=== PATIENT | female | born 2005 | race Native Hawaiian/Other Pacific Islander ===

== ENCOUNTER 2024-04-09 02:40 | Emergency (ER) | payer MEDICAID, OTHER, SELFPAY ==
[2024-04-09 03:18] VITALS: BP 111/70; PULSE 115; RESP 23; TEMP 36.9; O2SAT 99; BMI 25.7
[2024-04-09 03:24] VITALS: BP 111/70; PULSE 115; RESP 23; TEMP 36.9; O2SAT 99
--- NOTE | 2024-04-09 03:42 | ED_ITS ---
HPI - Nausea/Vomiting/Diarrhea General Chief complaint: Nausea/Vomiting/Diarrhea Stated complaint: n/v/d Time Seen by Provider: 04/09/24 03:24 Source: patient Mode of arrival: ambulatory Limitations: no limitations History of Present Illness ED Provider: HPI Narrative: Patient otherwise healthy had [place] food in the evening today and since 18:00 started vomiting more than 15 times high diarrhea more than 6 times no other family members no fever had some chills will lightheaded dizzy weak no upper respiratory symptoms Related Data Previous Rx's ?Medication ?Instructions ?Recorded loperamide 2 mg tablet (Imodium 2 mg PO Q6H PRN loose stool #7 tabs 04/09/24 A-D) ondansetron 4 mg disintegrating 4 mg PO Q6-8H PRN nausea and 04/09/24 tablet vomiting #7 tabs Allergies Allergy/AdvReac Type Severity Reaction Status Date / Time No Known Allergies Allergy Verified 04/09/24 03:23 Review of Systems 2 Review of Systems: Yes all other systems are reviewed and are negative [facility] Social History Social History Smoked in Last 30 Days: No Use of substances other than those prescribed or required for medical reasons: No Advance Directives: No Advance Directives Information Provided: Yes Do you have a plan to hurt others: No Plan Patient : No Physical Exam 2 Vital Signs: Vital Signs: Last Vital Signs Temp 99.5 F 04/09/24 06:15 Pulse 104 H 04/09/24 06:15 Resp 12 04/09/24 06:15 BP 99/50 L 04/09/24 06:15 Pulse Ox 96 04/09/24 06:15 O2 Del Method Room Air 04/09/24 06:15 BMI result Body Mass Index 25.7 Appearance: Alert. Oriented X3. No acute distress. Eyes: No pallor or icterus ENT: Pharynx normal. Oral Mucosa moist Neck: Normal inspection. Neck supple. CVS: Normal heart rate and rhythm. Pulses normal. Respiratory: No respiratory distress. Equal air entry bilateral, no wheezing/rales/rhonchi Abdomen: Soft and nontender. Bowel sounds are present, no mass palpable, no CVA tenderness Skin: Skin warm and dry. Normal skin color. Normal skin turgor. Extremities: No lower extremity edema. No calf tenderness Neuro: Oriented X 3. No motor deficit. Medications Administered Discontinued Medications Generic Name Dose Route Start Last Admin Trade Name Galloq PRN Reason Stop Dose Admin Sodium Chloride 1,000 mls @ 999 mls/hr 04/09/24 04:01 04/09/24 06:14 Ns IV 04/09/24 05:01 Infused .Q1H1M ONE Infusion Loperamide HCl 4 mg 04/09/24 04:01 04/09/24 04:21 Loperamide Hcl 2 Mg Capsule PO 04/09/24 04:02 4 mg ONCE ONE Administration Ondansetron HCl 4 mg 04/09/24 04:01 04/09/24 04:21 Ondansetron Hcl 4 Mg/2 Ml Vial IVPUSH 04/09/24 04:02 4 mg ONCE ONE Administration Medical Decision Making Medical Decision Making [facility] Narrative: Patient is feeling much better after IV fluids taking p.o. fluids no diarrhea in the ER discharge patient home likely norovirus Lab Data [facility] Lab Attestation statement: I reviewed the patient's lab results. 04/09/24 03:43 04/09/24 03:43 Labs: Lab Results 04/09/24 Range/Units 03:43 WBC 13.4 H (4.8-10.8) X10*3/uL RBC 4.68 (4.20-5.50) X10*6/uL Hgb 13.9 (12.0-16.0) g/dl Hct 40.7 (37.0-47.0) % MCV 87.0 (80.0-98.0) fL MCH 29.7 (27.0-33.0) pg MCHC 34.2 (31.0-35.0) g/dl RDW 13.5 (11.0-16.0) % Plt Count 272 (160-400) X10*3/uL MPV 8.9 L (9.4-12.3) fL Immature Gran % (Auto) 0.2 (0.0-0.4) % Neut % (Auto) 85.5 H (45-73) % Lymph % (Auto) 6.2 L (20-40) % [place] % (Auto) 7.5 (2-11) % Eos % (Auto) 0.4 (0-4) % Baso % (Auto) 0.2 (0-2) % Lymph # (Auto) 0.8 L (1.2-4.9) X10*3/uL [place] # (Auto) 1.0 (0.1-1.2) X10*3/uL Eos # (Auto) 0.1 (0.0-0.4) X10*3/uL Baso # (Auto) 0.0 (0.0-0.2) X10*3/uL Abs Immat Gran (auto) 0.03 (0.00-0.03) X10*3/uL Absolute Neuts (auto) 11.5 H (2.0-8.3) x10*3/uL Absolute Nucleated RBC 0.000 (0.0-0.012) X10*3/uL Nucleated RBC % (auto) 0.0 (0.0-0.2) /100WBC Sodium 143 (135-145) mmol/L Potassium 4.0 (3.3-5.1) mmol/L Chloride 112 H (96-108) mmol/L Carbon Dioxide 22 (22-29) mmol/L Anion Gap 13 (12-20) BUN 20 H (9-16) mg/dL Creatinine 0.71 (0.5-1.4) mg/dL Estim Creat Clear Calc 130.2 Estimated GFR > 60 Random Glucose 134 H (60-115) mg/dL Calcium 8.4 (8.4-10.2) mg/dL Total Bilirubin 0.9 (0.0-1.0) mg/dL AST 18 (5-31) U/L ALT 22 (0-31) U/L Alkaline Phosphatase 95 (39-117) U/L Total Protein 7.1 (6.5-8.0) g/dL Albumin 4.3 (3.5-5.0) g/dL Discharge Plan Discharge Clinical Impression: Gastroenteritis Patient Disposition: Home, Self-Care Instructions: Gastroenteritis (ED) Additional Instructions: Drink plenty of fluids Medicine for nausea and diarrhea as prescribed Follow the PCP if not better Prescriptions: New loperamide [Imodium A-D] 2 mg tablet 2 mg PO Q6H PRN (Reason: loose stool) Qty: 7 0RF ondansetron 4 mg tablet,disintegrating 4 mg PO Q6-8H PRN (Reason: nausea and vomiting) Qty: 7 0RF Print Language: Senegalese
[2024-04-09 03:47] LABS: MANUAL DIFF FLAG NO
[2024-04-09 03:48] LABS: Basophils Percent Auto 0.2 % (0-2); Eosinophils Absolute Auto 0.1 X10*3/uL (0.0-0.4); Eosinophils Percent Auto 0.4 % (0-4); Hematocrit 40.7 % (37.0-47.0); Hemoglobin 13.9 g/dl (12.0-16.0); Imm Gran Abs Auto 0.03 X10*3/uL (0.00-0.03); Imm Gran Pct Auto 0.2 % (0.0-0.4); Lymphocytes Absolute Auto 0.8 X10*3/uL (1.2-4.9); Lymphocytes Percent Auto 6.2 % (20-40); Mean Corpuscular HGB Conc 34.2 g/dl (31.0-35.0); Mean Corpuscular Hemoglobin 29.7 pg (27.0-33.0); Mean Platelet Volume 8.9 fL (9.4-12.3); Monocytes Percent Auto 7.5 % (2-11); Neutrophils Absolute Auto 11.5 x10*3/uL (2.0-8.3); Neutrophils Percent Auto 85.5 % (45-73); Platelet Count 272 X10*3/uL (160-400); Red Blood Count 4.68 X10*6/uL (4.20-5.50); Red Cell Distribution Width 13.5 % (11.0-16.0); White Blood Count 13.4 X10*3/uL (4.8-10.8)
[2024-04-09 04:08] LABS: Alanine Aminotransferase 22 U/L (0-31); Albumin Level 4.3 g/dL (3.5-5.0); Alkaline Phosphatase 95 U/L (39-117); Anion Gap 13 (12-20); Aspartate Amino Transferase 18 U/L (5-31); Bilirubin Total 0.9 mg/dL (0.0-1.0); Blood Urea Nitrogen 20 mg/dL (9-16); Calcium 8.4 mg/dL (8.4-10.2); Carbon Dioxide 22 mmol/L (22-29); Chloride 112 mmol/L (96-108); Creatinine Clr Calc Pharmacy 130.2; Estimated Glomerular Filt Rate > 60; Glucose Random 134 mg/dL (60-115); Sodium 143 mmol/L (135-145); Total Protein 7.1 g/dL (6.5-8.0)
[2024-04-09] MEDS: Loperamide HCl 2 MG CAPSULE 4 MG PO (04:21)
[2024-04-09] MEDS: ondansetron HCL 4 MG/2 ML VIAL IVPUSH (04:21)
[2024-04-09] MEDS: 0.9 % Sodium Chloride 1,000 ML 999 ML IV (04:21)
--- NOTE | 2024-04-09 06:12 | PC.NURSE ---
Patient tolerated PO intake no nausea or pain reported post po intake of fluids
[2024-04-09 06:15] VITALS: BP 99/50; PULSE 104; RESP 12; TEMP 37.5; O2SAT 96
[2024-04-09 06:18] VITALS: BP 99/50; PULSE 104; RESP 12; TEMP 37.5; O2SAT 96
== END 2024-04-09 06:23 | disposition home or self-care (01) ==
PROVIDERS: Emergency Provider Internal Medicine
DX: K52.9 Noninfective gastroenteritis and colitis, unspecified (principal); R11.2 Nausea with vomiting, unspecified
CPT/HCPCS: 36415; 80053; 85025; 96361; 96374; 99284; J2405

== ENCOUNTER 2024-06-19 00:26 | Emergency (ER) | payer MEDICAID, OTHER, SELFPAY ==
[2024-06-19 00:39] VITALS: BP 115/68; PULSE 92; RESP 18; TEMP 36.6; O2SAT 98; BMI 26.7
[2024-06-19 01:08] LABS: Appearance Urine Clear; Color Urine Yellow; Glucose Urine UA Negative (Negative); Leukocyte Esterase Urine Moderate (2+) (Negative); Nitrite Urine Negative (Negative); PH 5.5 (5.0-9.0); Specific Gravity - Urine >= 1.030 (1.005-1.025); UMIC TRIGGER UACC YES; Urine Blood Small (1+) (Negative); Urine Ketones 15 mg/dL (Negative); Urine Protein Trace mg/dL (Neg-Trace)
[2024-06-19 01:15] LABS: Hematocrit 38.9 % (37.0-47.0); Hemoglobin 13.7 g/dl (12.0-16.0); Mean Corpuscular HGB Conc 35.2 g/dl (31.0-35.0); Mean Corpuscular Hemoglobin 29.7 pg (27.0-33.0); Mean Corpuscular Volume 84.4 fL (80.0-98.0); Mean Platelet Volume 8.9 fL (9.4-12.3); Platelet Count 330 X10*3/uL (160-400); Red Blood Count 4.61 X10*6/uL (4.20-5.50); Red Cell Distribution Width 12.6 % (11.0-16.0); White Blood Count 10.3 X10*3/uL (4.8-10.8)
[2024-06-19 01:19] LABS: Bacteria Urine None Seen (None Seen); Hyaline Casts Urine 0-2 /LPF (0-2); Squamous Epithelial Cell Urine 0-2 /HPF (0-2); UACC Culture Trigger YES; WBC Urine 21-50 /HPF (0-5)
[2024-06-19 01:26] LABS: Alanine Aminotransferase 17 U/L (0-31); Albumin Level 4.6 g/dL (3.5-5.0); Alkaline Phosphatase 94 U/L (39-117); Anion Gap 13 (12-20); Aspartate Amino Transferase 20 U/L (5-31); Bilirubin Direct 0.1 mg/dL (0.0-0.5); Bilirubin Total 0.3 mg/dL (0.0-1.0); Blood Urea Nitrogen 13 mg/dL (9-16); Calcium 9.3 mg/dL (8.4-10.2); Carbon Dioxide 23 mmol/L (22-29); Chloride 110 mmol/L (96-108); Creatinine Clr Calc Pharmacy 147.4; Estimated Glomerular Filt Rate > 60; Glucose Random 101 mg/dL (60-115); Lipase 11 U/L (8-78); Magnesium 1.8 mg/dL (1.6-2.6); Potassium 3.7 mmol/L (3.3-5.1); Sodium 142 mmol/L (135-145); Total Protein 7.8 g/dL (6.5-8.0)
--- NOTE | 2024-06-19 02:57 | ED_ITS ---
HPI - Abdominal Pain General Chief Complaint: Abdominal Pain Stated Complaint: abd pain Time Seen by Provider: 06/19/24 02:03 Source: patient Mode of arrival: ambulatory Limitations: no limitations History of Present Illness ED Provider: HPI narrative: Patient complaining of 3 days of mid and lower abdominal pain with nausea no vomiting no diarrhea no fever no chills status post appendectomy no vaginal discharge complaining of frequency and dysuria for last 2 days no flank pain no fever or chills Related Data Previous Rx's ?Medication ?Instructions ?Recorded loperamide 2 mg tablet (Imodium 2 mg PO Q6H PRN loose stool #7 tabs 04/09/24 A-D) ondansetron 4 mg disintegrating 4 mg PO Q6-8H PRN nausea and 04/09/24 tablet vomiting #7 tabs cefuroxime axetil 250 mg tablet 250 mg PO BID 7 days #14 tabs 06/19/24 phenazopyridine 200 mg tablet 200 mg PO TID 2 days #6 tabs 06/19/24 (Pyridium) Allergies Allergy/AdvReac Type Severity Reaction Status Date / Time No Known Allergies Allergy Verified 06/19/24 00:45 Review of Systems Review of Systems Yes all other systems are reviewed and are [facility] Social History Social History Advance Directives: No Advance Directives Information Provided: Yes Physical Exam ED Vital Signs: Vital Signs - 24 hr 06/19/24 00:39 06/19/24 03:56 06/19/24 03:59 Temperature 97.8 F 98.3 F 98.3 F Pulse Rate 92 81 81 Respiratory Rate 18 16 16 Blood Pressure 115/68 118/53 L 118/53 L Pulse Oximetry 98 98 98 Oxygen Delivery Method Room Air Room Air Room Air BMI result Body Mass Index 26.7 Appearance: Alert. Oriented X3. No acute distress. Eyes: No pallor or icterus ENT: Pharynx normal. Oral Mucosa moist Neck: Normal inspection. Neck supple. CVS: Normal heart rate and rhythm. Pulses normal. Respiratory: No respiratory distress. Equal air entry bilateral, no wheezing/rales/rhonchi Abdomen: Soft and mild suprapubic discomfort no rebound tenderness or guarding Bowel sounds are present, no mass palpable, no CVA tenderness Skin: Skin warm and dry. Normal skin color. Normal skin turgor. Extremities: No lower extremity edema. No calf tenderness Neuro: Oriented X 3. No motor deficit. Medical Decision Making Medical Decision Making [facility] Narrative: Patient with lower abdominal pain status post appendectomy normal WBC count noticed to have UTI will prescribe cefuroxime Lab Data [facility] Lab Attestation statement: I reviewed the patient's lab results. 06/19/24 00:58 06/19/24 00:58 Labs: Lab Results 06/19/24 Range/Units 00:58 WBC 10.3 (4.8-10.8) X10*3/uL RBC 4.61 (4.20-5.50) X10*6/uL Hgb 13.7 (12.0-16.0) g/dl Hct 38.9 (37.0-47.0) % MCV 84.4 (80.0-98.0) fL MCH 29.7 (27.0-33.0) pg MCHC 35.2 H (31.0-35.0) g/dl RDW 12.6 (11.0-16.0) % Plt Count 330 (160-400) X10*3/uL MPV 8.9 L (9.4-12.3) fL Absolute Nucleated RBC 0.000 (0.0-0.012) X10*3/uL Nucleated RBC % (auto) 0.0 (0.0-0.2) /100WBC Sodium 142 (135-145) mmol/L Potassium 3.7 (3.3-5.1) mmol/L Chloride 110 H (96-108) mmol/L Carbon Dioxide 23 (22-29) mmol/L Anion Gap 13 (12-20) BUN 13 (9-16) mg/dL Creatinine 0.63 (0.5-1.4) mg/dL Estim Creat Clear Calc 147.4 Estimated GFR > 60 Random Glucose 101 (60-115) mg/dL Calcium 9.3 D (8.4-10.2) mg/dL Magnesium 1.8 (1.6-2.6) mg/dL Total Bilirubin 0.3 (0.0-1.0) mg/dL Direct Bilirubin 0.1 (0.0-0.5) mg/dL AST 20 (5-31) U/L ALT 17 (0-31) U/L Alkaline Phosphatase 94 (39-117) U/L Total Protein 7.8 (6.5-8.0) g/dL Albumin 4.6 (3.5-5.0) g/dL Lipase 11 (8-78) U/L Urine Color Yellow Urine Appearance Clear Urine pH 5.5 (5.0-9.0) Ur Specific [place] >= 1.030 H (1.005-1.025) Urine Protein Trace (Neg-Trace) mg/dL Urine Glucose (UA) Negative (Negative) mg/dL Urine Ketones 15 (Negative) mg/dL Urine Blood Small (1+) H (Negative) Urine Nitrite Negative (Negative) Ur Leukocyte Esterase Moderate (2+) H (Negative) Urine RBC 3-5 H (0-2) /HPF Urine WBC 21-50 H (0-5) /HPF Ur Squamous Epith Cells 0-2 (0-2) /HPF Urine Bacteria None Seen (None Seen) Hyaline Casts 0-2 (0-2) /LPF Medications Administered Discontinued Medications Generic Name Dose Route Start Last Admin Trade Name Freq PRN Reason Stop Dose Admin Cefuroxime Axetil 500 mg 06/19/24 02:57 06/19/24 03:47 Cefuroxime Axetil 500 Mg Tablet PO 06/19/24 02:58 500 mg ONCE ONE Administration Phenazopyridine HCl 200 mg 06/19/24 03:04 06/19/24 03:46 Phenazopyridine Hcl 200 Mg Tablet PO 06/19/24 03:05 200 mg ONCE ONE Administration Discharge Plan Discharge Clinical Impression: UTI (urinary tract infection) Patient Disposition: Home, Self-Care Instructions: Urinary Tract Infection in Women (ED) Additional Instructions: Drink plenty of fluids Take antibiotics as prescribed Follow with your PCP if not better Prescriptions: New cefuroxime axetil 250 mg tablet 250 mg PO BID 7 Days Qty: 14 0RF phenazopyridine [Pyridium] 200 mg tablet 200 mg PO TID 2 Days Qty: 6 0RF No Action loperamide [Imodium A-D] 2 mg tablet 2 mg PO Q6H PRN (Reason: loose stool) Qty: 7 0RF ondansetron 4 mg tablet,disintegrating 4 mg PO Q6-8H PRN (Reason: nausea and vomiting) Qty: 7 0RF Interventions: ED Discharge Assessment Last Done: 06/19/24 03:59 Discharge Date/Time: 06/19/24 04:02 Print Language: Barbadian
[2024-06-19] MEDS: Phenazopyridine HCL 200 MG TABLET PO (03:46)
[2024-06-19] MEDS: cefuroxime axetiL 500 MG TABLET PO (03:47)
[2024-06-19 03:56] VITALS: BP 118/53; PULSE 81; RESP 16; TEMP 36.8; O2SAT 98
[2024-06-19 03:59] VITALS: BP 118/53; PULSE 81; RESP 16; TEMP 36.8; O2SAT 98
== END 2024-06-19 04:02 | disposition home or self-care (01) ==
PROVIDERS: Emergency Provider Internal Medicine
DX: N39.0 Urinary tract infection, site not specified (principal); R10.30 Lower abdominal pain, unspecified
CPT/HCPCS: 36415; 80053; 81001; 82248; 83690; 83735; 85027; 87086; 99283; 99284

== ENCOUNTER 2024-08-04 16:17 | Outpatient (REF) | payer MEDICAID, OTHER, SELFPAY ==
--- OUTSIDE RECORDS SUMMARY | 2024-08-04 16:20 | XMS_ITS | Encounter Summary ---
Author Organization [employer] Address [address] [facility] [address] [place] [address] Care Team Providers Care Plumber Name Role Phone Unavailable Primary Care Provider Unavailabl e Encounter Details Date Type Department Care Team (Latest Contact Info) Description 07/30/2024 Travel Social History Tobacco Use Types Packs/Day Years Used Date Smoking Tobacco: Never Smokeless Tobacco: Never Alcohol Use Standard Drinks/Week Comments Never 0 (1 standard drink = 0.6 oz pur e alcohol) Comments Unknown Sex and Gender Information Value Date Recorded Sex Assigned at Female 07/30/2024 9:42 AM EDT Legal Sex Female 1:51 PM EST Gender Identity Female 07/30/2024 9:42 AM EDT Sexual Orientation Choose not to disclose 2024 9:42 AM EDT documented as of this encounter Plan of Treatment Not on file documented as of this encounter Visit Diagnoses Not on filedocumented in this encounter
--- OUTSIDE RECORDS SUMMARY | 2024-08-04 16:20 | XMS_ITS | Clinical Summary ---
Author Organization [employer] Address [address] [facility] [address] [place] [address] Care Team Providers Care Animal Nutrition Consultant Name Role Phone Samanta Adams DO Primary Care Provider Allergies No known active allergies Medications albuterol 108 (90 Base) MCG/ACT inhalerIndicati ons:Asthma, unspecified asthma severity, unspecified whether complicated, unspecified whether persistent Inhale 2 puffs every 6 (six) hours if needed for wheezing. 18 g 07/31/19 Active fluticasone furoate (Arnuity Ellipta) 100 MCG/ACT inhalerIndicati ons:Asthma, unspecified asthma severity, unspecified whether complicated, unspecified whether persistent Inhale 1 puff Once per day. Rinse mouth with water after use to reduce aftertaste and incidence of candidiasis. Do not swallow. 1 each 07/31/19 Active montelukast (Singulair) 10 MG tabletIndicatio ns:Asthma, unspecified asthma severity, unspecified whether complicated, unspecified whether persistent Take 1 tablet (10 mg) by mouth Once per day. 30 tablet 2 07/31/19 025 Active ibuprofen 600 MG tablet Take 1 tablet (600 mg) by mouth every 6 (six) hours if needed for mild pain. 60 tablet 1 08/05/19 026 Active acetaminophen (Tylenol 8 Hour) 650 MG ER tablet Take 1 tablet (650 mg) by mouth every 8 (eight) hours if needed for mild pain. Do not crush, chew, or split. 60 tablet 1 08/05/19 026 Active sulfamethoxazol e-trimethoprim (Bactrim DS) 800-160 MG tablet Take 1 tablet by mouth 2 times daily for 3 days. 6 tablet 07/31/19 25 025 Discontinued Active Problems Problem Noted Date Diagnosed Date Asthma 07/30/2024 Seasonal allergies 07/30/2024 IUD (intrauterine device) in place 07/30/2024 Encounters Date Type Department Care Team Description 08/04/2024 1:40 PM EDT Office Visit [facility] [address] [place] [address] [phone] Pelvic pain (Primary Dx); Pain of ovary 07/30/2024 11:20 AM EDT Office Visit [facility] [address] [place] [address] [phone] Name, MD Victorino Asthma, unspecified asthma severity, unspecified whether complicated, unspecified whether persistent (Primary Dx); Acute cough; Seasonal allergies; Pelvic pain; IUD (intrauterine device) in place 07/30/2024 Travel 05/24/2024 Telephone [facility] [address] [place] [address] [phone] Marshall Solorio MD from Last 3 Months Social History Tobacco Use Types Packs/Day Years Used Date Smoking Tobacco: Never Smokeless Tobacco: Never Tobacco Cessation:Counseling Given: Not Answered Alcohol Use Standard Drinks/Week Comments Never 0 (1 standard drink = 0.6 oz pur e alcohol) Comments Unknown Sex and Gender Information Value Date Recorded Sex Assigned at Female 07/30/2024 9:42 AM EDT Legal Sex Female 1:51 PM EST Gender Identity Female 07/30/2024 9:42 AM EDT Sexual Orientation Choose not to disclose 2024 9:42 AM EDT Last Filed Vital Signs Vital Sign Reading Time Taken Comments Blood Pressure 124/78 08/04/2024 1:13 PM EDT Pulse 90 08/04/2024 1:13 PM EDT Temperature 36.4 ??C (97.6 ??F) 08/04/2024 1:13 PM ED T Respiratory Rate 16 08/04/2024 1:13 PM EDT Oxygen Saturation 99% 08/04/2024 1:13 PM EDT Inhaled Oxygen Concentration - - Weight 69.9 kg (154 lb) 08/04/2024 1:13 PM EDT Height - - Body Mass Index - - Plan of Treatment Health Maintenance Due Date Last Done Comments Chlamydia and Gonorrhea Screening 2004 Depression Screening 2004 HIV Screening 2004 SDOH Screening 2004 Alcohol/Substance Use Screening 2016 Family Planning (PISQ) 02/19/2019 HPV Vaccines (1 - 3-dose series) 02/19/2019 Hepatitis C Screening 02/19/2022 DTaP/Tdap/Td Vaccines (1 - Tdap) 02/19/2023 Hepatitis B Vaccines (1 of 3 - 19+ 3-dose series) 02/19/2023 Pneumococcal Vaccine: Pediat rics (0 to 5 Years) and At-Risk Patients (6 to 49) Years) (1 of 2 - PCV) 02/19/2023 COVID-19 Vaccine ( - 2023-2 5 season) 2023 Influenza Vaccine (#1) 2023 Tobacco Screening 07/30/2025 07/30/2024 Zoster Vaccines (1 of 2) 02/19/2054 RSV Patients and Pa tients Aged 60 years or older (1 - 1-dose 75+ series) 02/19/2079 HIB Vaccines Aged Out No longer eligi ble based on patient's age to complete this topic Hepatitis A Vaccines Aged Out No long er eligible based on patient's age to complete this topic IPV Vaccines Aged Out No longer eligi ble based on patient's age to complete this topic Meningococcal Vaccine Aged Out No karina marisa eligible based on patient's age to complete this topic RSV under 20 months Aged Out No longe r eligible based on patient's age to complete this topic Rotavirus Vaccines Aged Out No longer eligible based on patient's age to complete this topic Procedures Procedure Name Priority Date/Time Associated Diagnosis Comments POCT URINALYSIS DIPSTICK Routine 08/04/2024 1:30 PM EDT Pain of ovary POCT , URINE Routine 08/04/2024 1:29 PM EDT Pain of ovary POCT , URINE Routine 07/30/2024 10:55 AM EDT Pelvic pain POCT URINALYSIS DIPSTICK Routine 07/30/2024 10:55 AM EDT Pelvic pain POCT INFLUENZA B (ID NOW RAPID MOLECULAR) Routine 07/30/2024 10:35 AM EDT Acute cough POCT INFLUENZA A (ID NOW RAPID MOLECULAR) Routine 07/30/2024 10:35 AM EDT Acute cough POCT RAPID STREP A Routine 07/30/2024 10 :35 AM EDT Acute cough POCT RAPID COVID ANTIGEN Routine 07/30/2024 10:35 AM EDT Acute cough from Last 3 Months Results * POCT urinalysis dipstick manually resulted (08/04/2024 1:30 PM EDT) Only the most recent of2 resultswithin the time period is included. Color, UA Concepcion Clarity, UA Cloudy Glucose, UA Negative Bilirubin, UA Few 15 Comment:Small Ketones, UA Negative Spec Grav, UA 1.025 Blood, UA Negative Negative, None Detected pH, UA 5.5 Protein, UA 1+ 70+ Comment:30MG Urobilinogen, UA 1.0 Leukocytes, UA Trace Negative, Rare, Trace Nitrite, UA Negative Negative, None Detected Appearance, UA OK Urine 08/04/2024 1:30 PM EDT Samanta Adams DO POINT OF CARE TEST ENTER/JP T ORDERABLES Final Result * POCT , urine manually resulted (08/04/2024 1:29 PM EDT) Only the most recent of2 resultswithin the time period is included. Preg Test, Ur Negative Negative, Indeterminate, None Detected, Invalid, Specimen unsatisfactory for evaluation, Weakly Positive, 2+ Urine 08/04/2024 1:29 PM EDT Samanta Adams DO POINT OF CARE TEST ENTER/JP T ORDERABLES Final Result * Influenza B (ID NOW Rapid Molecular) (07/30/2024 10:35 AM EDT) [facility] Influenza B Negative Negative, Indeterminate [facility] Swab 07/30/2024 10:3 5 AM EDT us Victorino Powell MD POINT OF CARE TEST ENTER/EDIT OR DERABLES Final Result Performing Organization Address [facility] Co de Phone Number [facility] [address] [place] [phone] * Influenza A (ID NOW Rapid Molecular) (07/30/2024 10:35 AM EDT) [facility] Influenza A Negative Negative, Indeterminate [facility] Swab 07/30/2024 10:3 5 AM EDT us Victorino Powell MD POINT OF CARE TEST ENTER/EDIT OR DERABLES Final Result Performing Organization Address [facility] Co de Phone Number [facility] [address] [place] [address] [phone] * POCT Rapid COVID Ag (07/30/2024 10:35 AM EDT) [facility] Rapid COVID Ag Negative [facility] Swab 07/30/2024 10:3 5 AM EDT us Victorino Powell MD POINT OF CARE TEST ENTER/EDIT OR DERABLES Final Result Performing Organization Address [facility] de Phone Number [facility] [address] [place] [address] [phone] * POCT rapid strep A manually resulted (07/30/2024 10:35 AM EDT) [facility] Rapid Strep A Screen Negative Negative, None Detected [facility] Swab 07/30/2024 10:3 5 AM EDT us Victorino Powell MD POINT OF CARE TEST ENTER/EDIT OR DERABLES Final Result [facility] [address] [place] [phone] [phone] from Last 3 Months Insurance [facility] [employer] Care Teams Animal Nutrition Consultant Relationship Specialty Start Date End Date Samanta Adams DO [address] [place] [phone] PCP - General Family Medicine 08/04/24
--- OUTSIDE RECORDS SUMMARY | 2024-08-04 16:20 | XMS_ITS | Encounter Summary ---
Author Organization [employer] Address [address] [facility] [address] [place] [address] Care Team Providers Care Android Software Engineer Name Role Phone Samanta Adams DO Primary Care Provider [phone] Encounter Details Date Type Department Care Team (Late st Contact Info) Description 08/04/2024 1:40 PM EDT Office Visit [facility] [address] [place] [address] Pelvic pain (Primary Dx); Pain of ovary Social History Tobacco Use Types Packs/Day Years [...] AM EDT documented as of this encounter Last Filed Vital Signs Vital Sign Reading [...] - - Body Mass Index - - documented in this encounter Plan of Treatment Scheduled Orders Name Type Priority Associated Diagnoses Orde r Schedule Bacterial Vaginosis Microbiology Routine Pain of ovary Ordered: 08/04/2024 Chlamydia/N. Gonorrhoeae RNA, TMA, Urogenitial Microbiology Routine Pain of ovary Ordered: 08/04/2024 documented as of this encounter Procedures Procedure Name Priority Date/Time Associated Diagnosis Comments POCT URINALYSIS DIPSTICK Routine 08/04/2024 1:30 PM EDT Pain of ovary POCT , URINE Routine 08/04/2024 1:29 PM EDT Pain of ovary documented in this encounter Results * POCT urinalysis dipstick manually resulted (08/04/2024 1:30 PM EDT) Color, UA Conecpcion Clarity, UA Cloudy Glucose, UA Negative Bilirubin, [...] urine manually resulted (08/04/2024 1:29 PM EDT) Preg Test, Ur Negative Negative, Indeterminate, None Detected, Invalid, Specimen unsatisfactory for evaluation, Weakly Positive, 2+ Urine 08/04/2024 1:29 PM EDT Samanta Adams DO POINT OF CARE TEST ENTER/JP T ORDERABLES Final Result documented in this encounter Visit Diagnoses Diagnosis Pelvic pain- Primary Pain of ovary documented in this encounter Care Teams Android Software Engineer Relationship Specialty Start Date End Date Samanta Adams DO [address] [place] [phone] PCP - General Family Medicine 08/04/24 documented as of this encounter
--- OUTSIDE RECORDS SUMMARY | 2024-08-04 16:20 | XMS_ITS | Encounter Summary ---
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 Name Role Phone Unavailable Primary Care Provider Unavailabl e Reason for Referral * Consultation (Routine) - Authorized Specialty Diagnoses / Procedures Referred By Contac t Referred To Contact Midwifery Diagnoses IUD (intrauterine device) in place Pelvic pain Victorino Powell MD [address] [place] [phone] Phone: tel: fax: Giselle Grewal CNM [address] [place] [phone] Phone: tel: fax: Referral ID Status Reason Start Date Expiration Date Visits Requested Visits Authorized [id number] Authorized Consult and Treat 07/30/2024 07/30/2025 1 1 Reason for Visit * Reason Comments Cough Sore Throat Encounter Details Date Type Department Care Team ([facility] st Contact Info) Description 07/30/2024 11:20 AM EDT Office Visit [facility] [address] [place] [address] [phone] Victorino Powell MD [address] [place] [address] [phone] Asthma, unspecified asthma severity, unspecified whether complicated, unspecified whether persistent (Primary Dx); Acute cough; Seasonal allergies; Pelvic pain; IUD (intrauterine device) in place Social History Tobacco Use Types Packs/Day Years [...] Sign Reading Time Taken Comments Blood Pressure 109/67 07/30/2024 10:21 AM EDT Pulse 96 07/30/2024 10:21 AM EDT Temperature 36.8 ??C (98.3 ??F) 07/30/2024 1 0:21 AM EDT Respiratory Rate 17 07/30/2024 10:2 1 AM EDT Oxygen Saturation 98% 07/30/2024 10: 21 AM EDT Inhaled Oxygen Concentration - - Weight 72.9 kg (160 lb 12.8 oz) 025 10:21 AM EDT Height - - Body Mass Index - - documented in this encounter Progress Notes * Victorino Powell MD - 07/30/2024 11:20 AM EDT Subjective Patient ID: Serenity Murcia is a 19 y.o. female who presents for Cough and Sore Throat. The patient comes today for the first time to the clinic for a sick visit. She complains of a week of runny nose, sneezing, postnasal drip, cough. She denies any fevers or chills, no wheezing. No significant shortness of breath. She has been using albuterol regularly with some symptomatic improvement of the cough. She also complains of several weeks of pelvic pain. The patient has irregular periods and she has an IUD in place. She explains to me that she has irregular periods since [place]. No vaginal discharge. No new sexual partners. Review of Systems Constitutional: Negative for chills and fever. HENT: Positive for sneezing and sore throat. Respiratory: Positive for cough. Negative for shortness of breath and wheezing. Cardiovascular: Negative for chest pain, palpitations and leg swelling. Gastrointestinal: Negative for abdominal pain. Visit Vitals BP 109/67 (BP Location: Left arm, Patient Position: Sitting, BP Cuff Size: Adult) Pulse 96 Temp 98.3 ??F (36.8 ??C) (Oral) Resp 17 Wt 160 lb 12.8 oz (72.9 kg) SpO2 98% Objective Physical Exam Constitutional: Appearance: Normal appearance. Cardiovascular: Rate and Rhythm: Normal rate and regular rhythm. Heart sounds: No murmur heard. No gallop. Pulmonary: Effort: Pulmonary effort is normal. No respiratory distress. Breath sounds: Normal breath sounds. No wheezing. Musculoskeletal: Right lower leg: No edema. Left lower leg: No edema. Neurological: Mental Status: She is alert. Latest Reference Range & Units 07/30/24 10:35 Rapid Strep A Screen Negative, None Detected Negative Influenza A Negative, Indeterminate Negative Influenza B Negative, Indeterminate Negative Rapid COVID Ag Negative Assessment/Plan Diagnoses and all orders for this visit: Asthma, unspecified asthma severity, unspecified whether complicated, unspecified whether persistent Comments: And I suspect respiratory symptoms with the patient have to do with mild asthma exacerbation in thesetting of seasonal allergies. I recommended to continue rescue albuterol, I added daily Arnuity toher medications and daily Singulair as well. She is encouraged to call or come back if she does notfeel much better by next week. Rapid testing was negative today for strep, flu, COVID. Orders: - albuterol 108 (90 Base) MCG/ACT inhaler; Inhale 2 puffs every 6 (six) hours if needed for wheezing. - fluticasone furoate (Arnuity Ellipta) 100 MCG/ACT inhaler; Inhale 1 puff Once per day. Rinse mouth with water after use to reduce aftertaste and incidence of candidiasis. Do not swallow. - montelukast (Singulair) 10 MG tablet; Take 1 tablet (10 mg) by mouth Once per day. Acute cough - POCT Rapid COVID Ag - POCT rapid strep A manually resulted - Influenza A (ID NOW Rapid Molecular) - Influenza B (ID NOW Rapid Molecular) Seasonal allergies Pelvic pain Comments: Patient urine dipstick showed blood and leukocytes. Urine test was negative. I will treatfor possible UTI with 3-day course of Bactrim. I recommended to drink plenty of fluids. Referral togynecology because of the irregular periods and pelvic pain since she had her IUD placed (December of last year [place] Orders: - Referral to Gynecology ([facility]); Future IUD (intrauterine device) in place - Referral to Gynecology ([facility]); Future Other orders - sulfamethoxazole-trimethoprim (Bactrim DS) 800-160 MG tablet; Take 1 tablet by mouth 2 times daily for 3 days. documented in this encounter Plan of Treatment Scheduled Referrals Name Type Priority Associated Diagnoses Order Schedule Referral to Gynecology ([facility]) Outpatient Referral Routine IUD (intrauterine device) in place Pelvic pain Expected: 07/30/2024 (Approximate), Expires: 07/30/2025 documented as of this encounter Procedures Procedure Name Priority Date/Time Associated Diagnosis Comments POCT , URINE Routine 07/30/2024 10:55 AM EDT Pelvic pain POCT URINALYSIS DIPSTICK Routine 07/30/2024 10:55 AM EDT Pelvic pain POCT INFLUENZA B (ID NOW RAPID MOLECULAR) Routine 07/30/2024 10:35 AM EDT Acute cough POCT INFLUENZA A (ID NOW RAPID MOLECULAR) Routine 07/30/2024 10:35 AM EDT Acute cough POCT RAPID COVID ANTIGEN Routine 07/30/2024 10:35 AM EDT Acute cough POCT RAPID STREP A Routine 07/30/2024 10 :35 AM EDT Acute cough documented in this encounter Results * POCT , urine manually resulted (07/30/2024 10:55 AM EDT) Preg Test, Ur Negative Negative, Indeterminate, None Detected, Invalid, Specimen unsatisfactory for evaluation, Weakly Positive, 2+ Urine 07/30/2024 10:5 5 AM EDT Victorino Powell MD POINT OF CARE TEST ENTER/EDIT OR DERABLES Final Result * (ABNORMAL) POCT urinalysis dipstick manually resulted (07/30/2024 10:55 AM EDT) [facility] Color, UA Yellow Clarity, UA Clear Glucose, UA Negative Bilirubin, UA Negative Ketones, UA Negative Spec Grav, UA 1.025 Blood, UA Positive(A) Negative, None Detected Comment:moderate pH, UA 5.5 Protein, UA Trace Urobilinogen, UA 0.2 Leukocytes, UA Few 15(A) Negative, Rare, Trace Comment:small Nitrite, UA Negative Negative, None Detected Urine 07/30/2024 10:5 5 AM EDT Victorino Powell MD POINT OF CARE TEST ENTER/EDIT OR DERABLES Final Result * Influenza B (ID NOW Rapid Molecular) (07/30/2024 10:35 AM EDT) [facility] Influenza B Negative Negative, Indeterminate [facility] Swab 07/30/2024 10:3 5 AM EDT us Victorino Powell MD POINT OF CARE TEST ENTER/EDIT OR DERABLES Final Result Performing Organization Address City/[facility]/ZIP Co de Phone Number [facility] [address] [place] [phone] * Influenza A (ID NOW Rapid Molecular) (07/30/2024 10:35 AM EDT) [facility] Influenza A Negative Negative, Indeterminate [facility] Swab 07/30/2024 10:3 5 AM EDT Victorino Powell MD POINT OF CARE TEST ENTER/EDIT OR DERABLES Final Result Performing Organization Address [facility] Co de Phone Number [facility] [address] [place] [phone] * POCT rapid strep A manually resulted (07/30/2024 10:35 AM EDT) [facility] Rapid Strep A Screen Negative Negative, None Detected [facility] Swab 07/30/2024 10:3 5 AM EDT us Victorino Powell MD POINT OF CARE TEST ENTER/EDIT OR DERABLES Final Result Performing Organization Address City/[facility]/ZIP Co de Phone Number [facility] [address] [place] [phone] * POCT Rapid COVID Ag (07/30/2024 10:35 AM EDT) Rapid COVID Ag Negative [facility] Swab 07/30/2024 10:3 5 AM EDT us Victorino Powell MD POINT OF CARE TEST ENTER/EDIT OR DERABLES Final Result Performing Organization Address [facility] Co de Phone Number [facility] [address] [place] [phone] documented in this encounter Visit Diagnoses Diagnosis Asthma, unspecified asthma severity, unspecified whether complicated, unspecified whether persistent- Primary Acute cough Seasonal allergies Allergic rhinitis, cause unspecified Pelvic pain IUD (intrauterine device) in place Presence of intrauterine contraceptive device documented in this encounter
[2024-08-05 11:24] LABS: Bacterial Vaginosis PCR POSITIVE (Negative); Candida Group PCR NOT DETECTED (Not Detect); Candida glab krusei PCR NOT DETECTED (Not Detect); Trichomonas vaginalis PCR DETECTED (Not Detect)
[2024-08-05 11:57] LABS: CT PCR DETECTED (Not Detect.); NG PCR NOT DETECTED (Not Detect.)
== END 2024-08-04 16:18 | disposition home or self-care (01) ==
LOC: HO.LNP 16:17
PROVIDERS: Visit Provider Family Medicine
DX: N94.89 Other specified conditions associated with female genital organs and menstrual cycle (principal)
CPT/HCPCS: 81515; 87491; 87591

== ENCOUNTER 2024-08-05 16:19 | Emergency (ER) | payer MEDICAID, OTHER, SELFPAY ==
--- NOTE | ~2024-08-05 | US_ITS ---
CLINICAL HISTORY: R ovarian pain Exam: 1. Pelvic ultrasound, transabdominal and transvaginal evaluation. 2. Duplex ultrasound of the ovaries. Comparison: None. Findings: Findings: Transabdominal and transvaginal pelvic ultrasound study was performed. Urinary bladder is decompressed on all images. Uterus is retroverted and retroflexed. Uterus measures 8.0 x 3.4 x 6.7 cm in size. Heterogeneous echotexture within the myometrium without discrete fibroid. IUD is appropriately positioned within the endometrial canal. Endometrial stripe measures 6 mm in thickness without mass, polyp, or focal thickening. Right ovary measures 2.3 x 2.5 x 2.1 cm in size. Right ovary is of normal echotexture without mass lesion. Left ovary measures 3.3 x 2.9 x 2.9 cm in size. Avascular hypoechoic structure within the left ovary measures 2.2 x 2.3 x 2.2 cm in size. This has internal low-level echoes. No internal blood flow within this presumed cyst is identified. Small volume free pelvic fluid. Duplex evaluation of the ovaries was performed. This included real-time grayscale, color spectral Doppler analysis, and color Doppler flow imaging appropriate blood flow to both ovaries. Impression: 1. IUD appropriately positioned within the endometrial canal. 2. Unremarkable ultrasound of the right ovary. 3. Complex cyst within the left ovary. This is highly likely a collapsing cyst or hemorrhagic cyst. However, given its complexity, follow up pelvic ultrasound in 3-6 months suggested to ensure resolution. This document has been electronically signed by: Tariq Gallardo MD on 08/05/2024 20:17:14
--- NOTE | ~2024-08-05 | XR_ITS ---
CLINICAL HISTORY: cough Exam: PA and lateral views of the chest. Comparison: None. Findings: Mediastinal contours, cardiac silhouette, and pulmonary vasculature are within normal limits. Lungs are clear. No pleural effusion or pneumothorax. Impression: No acute findings. This document has been electronically signed by: Tariq Gallardo MD on 08/05/2024 22:28:05
--- NOTE | ~2024-08-05 | US_ITS ---
CLINICAL HISTORY: abdominal pain GB only LFTs abnormal Exam: Ultrasound of the gallbladder. Comparison: None. Findings: Gallbladder is unremarkable without gallbladder wall thickening, pericholecystic fluid, or cholelithiasis. Negative sonographic Ugarte's sign. Common bile duct is within normal limits. No free fluid. Impression: Negative gallbladder ultrasound. This document has been electronically signed by: Tariq Gallardo MD on 08/05/2024 22:20:41
[2024-08-05 17:04] VITALS: BP 113/65; PULSE 94; RESP 18; TEMP 36.8; O2SAT 97; BMI 24.6
--- NOTE | 2024-08-05 17:04 | ED_ITS ---
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 Her entire family is sick. She denies n/v/d. She has not had fevers, no vaginal discharge and no urinary symptoms. She notes she had prior appendectomy. She never followed up with her OBGYN. She notes it hurts to touch RLQ and move. She takes motrin and it gets better MD elicited complaint: abdominal pain Pertinent past history: none Onset (ago): month(s) (9) Pain Consistency: intermittent Location: RLQ Severity: moderate Quality: aching Radiation: none Migration to: no migration Exacerbating factors: movement Relieving factors: nothing Associated symptoms: other (cough) Related Data Previous Rx's ?Medication ?Instructions ?Recorded loperamide 2 mg tablet (Imodium 2 mg PO Q6H PRN loose stool #7 tabs 04/09/24 A-D) ondansetron 4 mg disintegrating 4 mg PO Q6-8H PRN nausea and 04/09/24 tablet vomiting #7 tabs cefuroxime axetil 250 mg tablet 250 mg PO BID 7 days #14 tabs 06/19/24 phenazopyridine 200 mg tablet 200 mg PO TID 2 days #6 tabs 06/19/24 (Pyridium) amoxicillin 875 mg-potassium 1 tab PO BID #14 tabs 08/05/24 clavulanate 125 mg tablet cyclobenzaprine 10 mg tablet 10 mg PO TID PRN muscle spasm #14 08/05/24 tabs ondansetron 4 mg disintegrating 4 mg PO Q8H PRN nausea and 08/05/24 tablet vomiting #20 tabs Allergies Allergy/AdvReac Type Severity Reaction Status Date / Time No Known Allergies Allergy Verified 08/05/24 17:08 Review of Systems Review of Systems Constitutional : No Weight loss, No Fever, No Chills ENT/Mouth : No sore throat, No Rhinorrhea Eyes: No Swelling, No Redness Cardiovascular : No Chest Pain, No SOB, NoEdema Respiratory : pos Cough, No Sputum, No Wheezing Gastrointestinal : no Nausea, no Vomiting, no Diarrhea, positive abdominal Pain, No Hematochezia, No Melena Genitourinary : No Dysuria, No Urinary Frequency, No Hematuria, No Urgency Musculoskeletal : No joint pain, No Myalgias, No Joint Swelling Skin : No Skin Lesions, No rash Neuro : No Weakness, No Numbness, No Dizziness, No Headache All other systems reviewed and are negative. [facility] Past Medical History Attestation statement: The following information was validated with the patient. Medical History Ovarian cyst Social History Social History (Updated 08/05/24 @ 21:47 by Kristen Brock DO) Patient Tobacco Use Status: Never used Tobacco Advance Directives: No Advance Directives Information Provided: No Physical Exam ED Vital Signs: Vital Signs - 24 hr 08/05/24 17:04 08/05/24 20:17 08/05/24 21:38 Temperature 98.3 F 98.3 F 98.3 F Pulse Rate 94 78 72 Respiratory Rate 18 16 16 Blood Pressure 113/65 105/70 110/59 L Pulse Oximetry 97 96 97 Oxygen Delivery Method Room Air Room Air Room Air BMI result Body Mass Index 24.6 Appearance: Alert. Oriented X3. No acute distress. Eyes: Pupils equal, round and reactive to light. ENT: Pharynx normal. Neck: Normal inspection. Neck supple. CVS: Normal heart rate and rhythm. Pulses normal. Respiratory: No respiratory distress. Breath sounds rhonchi noted. Abdomen: Soft and mild RLQ ttp no rebound or guarding, no hernia Skin: Skin warm and dry. Normal skin color. Normal skin turgor. Extremities: No lower extremity edema. No calf ttp Neuro: Oriented X 3. No motor deficit. No sensory deficit. CN2-12 intact Course Course Course Narrative: This is an RME performed by Bartolo Santiago CNP: Additional HPI, ROS, PE not included below will be deferred to primary provider. Patient is a 19-year-old female presents emergency department endorsing right-sided ovarian pain x3 days, exacerbates with position change and movement, got some relief from ibuprofen but then pain returns. Was seen at [facility], has an ultrasound scheduled but has not yet been performed. LMP 2 weeks ago. Denies concern for . Denies abnormal vaginal discharge or bleeding. Denies genitourinary symptoms. Plan: Serum labs, urinalysis, hCG, pelvic ultrasound, ibuprofen 600 mg Medical Decision Making Medical Decision Making [facility] Narrative: 19 yo female with PMH of ovarian cysts, chronic pelvic pain since childbirth x 9 months now here with c/o RLQ pain with no associated GI or symptoms. She has no UTI or STI concerns. At this time US and CXR given cough. She has slight bump in LFTs will obtain US of liver as well. The pain is chronic in RLQ x 9 months but worse with recent cough. I feel no hernia on exam. Overall abdomen is benign and given the chronicity of her pain seems unlikely to be acute infection or PID. Differential Diagnosis Differential Diagnoses: The differential diagnosis associated with the presentation includes cyst, uti, chronic pain, URI, pneumonia Admission/Observation Consideration of admission/observation: Escalation of care including admission/observation considered no cause of pain, no hernia on exam, has likely URI no pneumonia on CXR, pain x 9 months doubt PID or acute infection has concomitant URI at this time will DC Home with repeat labs with PCP start on abx for UA repeat LFTs next week with PCP Lab Data [facility] Lab Attestation statement: I reviewed the patient's lab results. 08/05/24 18:02 08/05/24 18:02 Labs: Lab Results 08/05/24 Range/Units 18:02 WBC 10.3 (4.8-10.8) X10*3/uL RBC 4.27 (4.20-5.50) X10*6/uL Hgb 12.9 (12.0-16.0) g/dl Hct 37.7 (37.0-47.0) % MCV 88.3 (80.0-98.0) fL MCH 30.2 (27.0-33.0) pg MCHC 34.2 (31.0-35.0) g/dl RDW 12.9 (11.0-16.0) % Plt Count 327 (160-400) X10*3/uL MPV 9.2 L (9.4-12.3) fL Immature Gran % (Auto) 0.4 (0.0-0.4) % Neut % (Auto) 69.8 (45-73) % Lymph % (Auto) 21.6 (20-40) % Kane % (Auto) 6.8 (2-11) % Eos % (Auto) 1.1 (0-4) % Baso % (Auto) 0.3 (0-2) % Lymph # (Auto) 2.2 (1.2-4.9) X10*3/uL Kane # (Auto) 0.7 (0.1-1.2) X10*3/uL Eos # (Auto) 0.1 (0.0-0.4) X10*3/uL Baso # (Auto) 0.0 (0.0-0.2) X10*3/uL Abs Immat Gran (auto) 0.04 H (0.00-0.03) X10*3/uL Absolute Neuts (auto) 7.2 (2.0-8.3) x10*3/uL Absolute Nucleated RBC 0.000 (0.0-0.012) X10*3/uL Nucleated RBC % (auto) 0.0 (0.0-0.2) /100WBC Sodium 139 (135-145) mmol/L Potassium 4.0 (3.3-5.1) mmol/L Chloride 109 H (96-108) mmol/L Carbon Dioxide 23 (22-29) mmol/L Anion Gap 11 L (12-20) BUN 11 (9-16) mg/dL Creatinine 0.65 (0.5-1.4) mg/dL Estim Creat Clear Calc 129.2 Estimated GFR > 60 Random Glucose 93 (60-115) mg/dL Calcium 9.1 (8.4-10.2) mg/dL Total Bilirubin 0.5 (0.0-1.0) mg/dL AST 50 H (5-31) U/L ALT 105 H (0-31) U/L Alkaline Phosphatase 90 (39-117) U/L C-Reactive Protein 1.57 H (< or = 0.50) mg/dL Total Protein 7.0 (6.5-8.0) g/dL Albumin 4.3 (3.5-5.0) g/dL Lipase 12 (8-78) U/L Urine Color Yellow Urine Appearance Clear Urine pH 5.5 (5.0-9.0) Ur Specific [place] 1.020 (1.005-1.025) Urine Protein Negative (Neg-Trace) mg/dL Urine Glucose (UA) Negative (Negative) mg/dL Urine Ketones Negative (Negative) mg/dL Urine Blood Trace H (Negative) Urine Nitrite Negative (Negative) Ur Leukocyte Esterase Moderate (2+) H (Negative) Urine RBC 0-2 (0-2) /HPF Urine WBC 21-50 H (0-5) /HPF Ur Squamous Epith Cells 3-5 (0-2) /HPF Urine Bacteria None Seen (None Seen) Hyaline Casts 0-2 (0-2) /LPF Urine Test NEGATIVE (NEGATIVE) Independent Interpretation I performed an independent interpretation of an: Plain X-Ray (normal per rads ?RLL early pneumonia) and Ultrasound (ovarian cyst L side not R with pain) Radiology Impression Discussion of test interpretation with radiology: I have reviewed the radiologist's reading. External Record Review External record reviewed: Outpatient record Prescription Management I considered prescription management with: Antibiotic and Other Medications Administered Discontinued Medications Generic Name Dose Route Start Last Admin Trade Name Freq PRN Reason Stop Dose Admin Ibuprofen 600 mg 08/05/24 17:09 08/05/24 17:11 Ibuprofen 600 Mg Tablet PO 08/05/24 17:10 600 mg ONCE ONE Administration Discharge Plan Discharge Clinical Impression: Abdominal pain Qualifiers: Abdominal location: right lower quadrant Qualified Code(s): R10.31 - Right lower quadrant pain Upper respiratory infection Qualifiers: URI type: unspecified URI Qualified Code(s): J06.9 - Acute upper respiratory infection, unspecified Patient Disposition: Home, Self-Care Instructions: Acute Bronchitis (ED), Acute Abdominal Pain (ED) Additional Instructions: your ultrasounds show L sided ovarian cyst - need to repeat imaging in 4 weeks at this time US of gallbladder normal UA some white cells will send off culture chest xray possible early RLL pneumonia small bump in liver blood tests would repeat with your doctor next week avoid tylenol but motrin is okay return for any worsening symptoms or concerns. 1. IUD appropriately positioned within the endometrial canal. 2. Unremarkable ultrasound of the right ovary. 3. Complex cyst within the left ovary. This is highly likely a collapsing cyst or hemorrhagic cyst. However, given its complexity, follow up pelvic ultrasound in 3-6 months suggested to ensure resolution. On amoxicillin-clavulanate, softer bowel movements are to be expected. Call your provider if you move your bowels more than 4 times a day, your bowel movements are almost all liquid, or you get a rash.? Prescriptions: New cyclobenzaprine 10 mg tablet 10 mg PO TID PRN (Reason: muscle spasm) Qty: 14 0RF ondansetron 4 mg tablet,disintegrating 4 mg PO Q8H PRN (Reason: nausea and vomiting) Qty: 20 0RF amoxicillin-pot clavulanate 875-125 mg tablet 1 tab PO BID Qty: 14 0RF No Action loperamide [Imodium A-D] 2 mg tablet 2 mg PO Q6H PRN (Reason: loose stool) Qty: 7 0RF ondansetron 4 mg tablet,disintegrating 4 mg PO Q6-8H PRN (Reason: nausea and vomiting) Qty: 7 0RF cefuroxime axetil 250 mg tablet 250 mg PO BID 7 Days Qty: 14 0RF phenazopyridine [Pyridium] 200 mg tablet 200 mg PO TID 2 Days Qty: 6 0RF Print Language: Lithuanian
[2024-08-05] MEDS: Ibuprofen 600 MG TABLET PO (17:11)
[2024-08-05 18:09] LABS: MANUAL DIFF FLAG NO
[2024-08-05 18:14] LABS: UPreg QC Valid YES; Urine Pregnancy NEGATIVE (NEGATIVE)
[2024-08-05 18:17] LABS: Appearance Urine Clear; Color Urine Yellow; Glucose Urine UA Negative (Negative); Leukocyte Esterase Urine Moderate (2+) (Negative); Nitrite Urine Negative (Negative); PH 5.5 (5.0-9.0); UMIC TRIGGER UACC YES; Urine Blood Trace (Negative); Urine Ketones Negative (Negative); Urine Protein Negative (Neg-Trace)
[2024-08-05 18:20] LABS: Bacteria Urine None Seen (None Seen); Hyaline Casts Urine 0-2 /LPF (0-2); RBC Urine 0-2 /HPF (0-2); UACC Culture Trigger YES; WBC Urine 21-50 /HPF (0-5)
[2024-08-05 18:25] LABS: Basophils Percent Auto 0.3 % (0-2); Eosinophils Absolute Auto 0.1 X10*3/uL (0.0-0.4); Eosinophils Percent Auto 1.1 % (0-4); Hematocrit 37.7 % (37.0-47.0); Hemoglobin 12.9 g/dl (12.0-16.0); Imm Gran Abs Auto 0.04 X10*3/uL (0.00-0.03); Imm Gran Pct Auto 0.4 % (0.0-0.4); Lymphocytes Absolute Auto 2.2 X10*3/uL (1.2-4.9); Lymphocytes Percent Auto 21.6 % (20-40); Mean Corpuscular HGB Conc 34.2 g/dl (31.0-35.0); Mean Corpuscular Hemoglobin 30.2 pg (27.0-33.0); Mean Corpuscular Volume 88.3 fL (80.0-98.0); Mean Platelet Volume 9.2 fL (9.4-12.3); Monocytes Absolute Auto 0.7 X10*3/uL (0.1-1.2); Monocytes Percent Auto 6.8 % (2-11); Neutrophils Absolute Auto 7.2 x10*3/uL (2.0-8.3); Neutrophils Percent Auto 69.8 % (45-73); Platelet Count 327 X10*3/uL (160-400); Red Blood Count 4.27 X10*6/uL (4.20-5.50); Red Cell Distribution Width 12.9 % (11.0-16.0); White Blood Count 10.3 X10*3/uL (4.8-10.8)
[2024-08-05 18:39] LABS: Alanine Aminotransferase 105 U/L (0-31); Albumin Level 4.3 g/dL (3.5-5.0); Alkaline Phosphatase 90 U/L (39-117); Anion Gap 11 (12-20); Aspartate Amino Transferase 50 U/L (5-31); Bilirubin Total 0.5 mg/dL (0.0-1.0); Blood Urea Nitrogen 11 mg/dL (9-16); Calcium 9.1 mg/dL (8.4-10.2); Carbon Dioxide 23 mmol/L (22-29); Chloride 109 mmol/L (96-108); Creatinine Clr Calc Pharmacy 129.2; Estimated Glomerular Filt Rate > 60; Glucose Random 93 mg/dL (60-115); Lipase 12 U/L (8-78); Sodium 139 mmol/L (135-145)
[2024-08-05 20:17] VITALS: BP 105/70; PULSE 78; RESP 16; TEMP 36.8; O2SAT 96
--- NOTE | 2024-08-05 20:20 | MHC.EDTECH ---
This pct just assumed care of Patient ,vitals taken ,Call tobar within Pt reach .
[2024-08-05 20:38] LABS: C Reactive Protein 1.57 mg/dL (< or = 0.50)
[2024-08-05 21:38] VITALS: BP 110/59; PULSE 72; RESP 16; TEMP 36.8; O2SAT 97
[2024-08-05] MEDS: Amoxicillin/Potassium Clav 875 MG TABLET PO (23:10)
[2024-08-05] MEDS: Cyclobenzaprine HCl 10 MG TABLET PO (23:10)
[2024-08-05 23:16] VITALS: BP 124/66; PULSE 68; RESP 18; TEMP 36.8; O2SAT 96
== END 2024-08-05 23:17 | disposition home or self-care (01) ==
PROVIDERS: Nurse Practitioner Family; Emergency Provider Emergency Medicine
DX: R10.31 Right lower quadrant pain (principal); J06.9 Acute upper respiratory infection, unspecified; R05.9 Cough, unspecified; G89.29 Other chronic pain; R10.2 Pelvic and perineal pain
CPT/HCPCS: 36415; 71046; 76705; 76830; 76856; 80053; 81001; 81025; 83690; 85025; 86140; 87086; 93975; 99284

== ENCOUNTER → 2024-08-05 17:07 | Outpatient (BNV) | payer MEDICAID, SELFPAY | PROVIDERS: Emergency Provider Emergency Medicine; Visit Provider Radiology Diagnostic Radiology | DX: N83.292 Other ovarian cyst, left side (principal) | CPT/HCPCS: 71046; 76705; 76830; 76856; 93975 ==

== ENCOUNTER 2024-12-05 14:27 | Emergency (ER) | payer MEDICAID, OTHER, SELFPAY ==
[2024-12-05] VITALS (7 sets, daily range): BP systolic 92–119; BP diastolic 50–62; PULSE 58–88; RESP 14–16; TEMP 36.7; O2SAT 98–100; BMI 23.3
--- NOTE | ~2024-12-05 | CT_ITS ---
EXAMINATION: CT HEAD WITHOUT CONTRAST CLINICAL INFORMATION: Syncope, headache COMPARISON: None available. TECHNIQUE: Contiguous axial imaging was performed from the skull base to vertex without intravenous administration of contrast. This CT examination was performed using dose optimization techniques as appropriate, variously including the following: *Automated exposure control *Adjustment of mA and/or kV according to patient size (this includes techniques or standardized protocols for targeted exams where dose is matched to indication/reason for exam; i.e. extremities or head) *Use of iterative reconstruction technique DLP: 590 mGY*cm FINDINGS: There is no acute ischemic change. There is no intracranial hemorrhage. There is no mass-effect or midline shift. Basal cisterns and ventricles are within normal limits for age/cerebral volume. Orbits are symmetrical and unremarkable. Paranasal sinuses and mastoid air cells are pneumatized. There are no bony abnormalities. CT/CT head/brain wo IV con IMPRESSION: No acute intracranial abnormality. Electronically signed by: Tarik Breen MD 12/05/2024 04:31 PM EDT
--- NOTE | ~2024-12-05 | CT_ITS ---
EXAMINATION: CT CERVICAL SPINE WITHOUT CONTRAST CLINICAL INFORMATION: Syncope COMPARISON: None available. TECHNIQUE: Axial imaging was performed from the base of the skull through T2 without IV contrast. Coronal and sagittal reformatted images were generated from the original axial data set. ALARA: The examination used one or more of the following radiation dose reduction techniques: Automated exposure control, iterative reconstruction, and/or adjustment of mA and/or KV. DLP: 380 mGY*cm FINDINGS: Motion mildly degrades the images. No fractures are identified. There is no prevertebral soft tissue edema. There is mild reversal cervical lordosis. CT/CT cervical spine wo IV con IMPRESSION: There is mild reversal of cervical lordosis. This can be related to positioning, muscle spasm, or posterior soft tissue injury. Electronically signed by: Tarik Breen MD 12/05/2024 05:02 PM EDT
--- NOTE | 2024-12-05 14:44 | ED_ITS ---
HPI - Syncope General Chief Complaint: Syncope Stated Complaint: FALL HIT HEAD,+CCOLLAR Time Seen by Provider: 12/05/24 14:44 Source: patient and RN notes reviewed Mode of arrival: ambulatory Limitations: no limitations History of Present Illness ED Provider: Charla Dias PA-C HPI narrative: This is a 19-year-old female who presents emergency department with concerns of syncopal episode which occurred this afternoon. Patient states that she had approximately 5 episodes of nausea and vomiting. She states that during vomiting she felt very lightheaded and collapsed into her coworkers arms. She is unsure if she fully lost consciousness. She reports that she was in her usual state of health yesterday. She denies any fevers, chills, chest pain, shortness of breath, abdominal pain. No diarrhea. No urinary symptoms. She states that she has had a history of syncopal episodes in the past after vomiting and having diarrhea. She states that she feels dizzy upon standing however this resolves when sitting. No other complaints or concerns at this time. MD complaint: loss of consciousness Onset (ago): hour(s) Prodromal symptoms: nausea/vomiting Witnessed: Yes - by Bystander Injuries sustained associated with event: none Current symptoms: headache History: previous syncopal episode Related Data Previous Rx's ?Medication ?Instructions ?Recorded loperamide 2 mg tablet (Imodium 2 mg PO Q6H PRN loose stool #7 tabs 04/09/24 A-D) ondansetron 4 mg disintegrating 4 mg PO Q6-8H PRN naus ea and 04/09/24 tablet vomiting #7 tabs cefuroxime axetil 250 mg tablet 250 mg PO BID 7 days # 14 tabs 06/19/24 phenazopyridine 200 mg tablet 200 mg PO TID 2 days #6 tabs 06/19/24 (Pyridium) amoxicillin 875 mg-potassium 1 tab PO BID #14 tabs 12/22 clavulanate 125 mg tablet cyclobenzaprine 10 mg tablet 10 mg PO TID PRN muscle s pasm #14 08/05/24 tabs ondansetron 4 mg disintegrating 4 mg PO Q8H PRN nausea and 08/05/24 tablet vomiting #20 tabs ondansetron 4 mg disintegrating 4 mg PO Q6H PRN nausea and 12/05/24 tablet vomiting #10 tabs Allergies Allergy/AdvReac Type Severity Reaction Status Date / Time No Known Allergies Allergy Verified 12/05/24 14:38 Review of Systems 2 Review of Systems: Constitutional : No Fever, No Chills ENT/Mouth : No sore throat, No Rhinorrhea Eyes: No Eye Pain, No Swelling, No Redness Cardiovascular : No Chest Pain, No SOB Respiratory : No Cough, No Sputum Gastrointestinal : No Nausea, No Vomiting, No Diarrhea, No abdominal Pain Genitourinary : No Dysuria, No Hematuria Musculoskeletal : No joint pain, No Myalgias, No Joint Swelling Skin : No Skin Lesions Neuro : No Weakness, No Numbness, No Headache All other systems reviewed and are negative Yes all other systems are reviewed and are negative Constitutional: Constitutional: Reports as per [facility] Past Medical History Medical History Ovarian cyst Social History Social History (Updated 08/05/24 @ 21:47 by Kristen Brock DO) Alcohol intake: never Patient Tobacco Use Status: Never used Tobacco Smoked in Last 30 Days: No Use of substances other than those prescribed or required for medical reasons: No Advance Directives: No Advance Directives Information Provided: No Physical Exam 2 Vital Signs: Vital Signs: Last Vital Signs Temp 98.0 F 12/05/24 18:43 Pulse 63 12/05/24 18:43 Resp 14 12/05/24 18:43 BP 102/55 L 12/05/24 18:43 Pulse Ox 100 12/05/24 18:43 O2 Del Method Room Air 12/05/24 18:43 BMI result Body Mass Index 23.3 Const: General: cooperative, comfortable and no acute distress O rientation/consciousness: patient oriented x3 Limitations: no limitations HEENT: Head: Yes normal to inspection, Yes normocephalic and Yes atraumatic Ears: hearing grossly normal bilaterally General nose exam: Normal external nose present Face and sinus: Yes normal facial exam Mouth: Normal oral and palatal mucosa present, oropharynx normal and moist mucous membranes Throat: Yes posterior oropharynx normal Eyes: General: appearance normal, both eyes and all related structures E yelids: Yes eyelids normal Conjunctivae: conjunctivae normal Sclerae: s clerae normal Pupils: Equal, round and reactive pupils present EOM: EOMs intact bilaterally Neck: Other: No midline C-spine tenderness on examination. Neck: Yes normal visual inspection, Yes full ROM and Yes no lymphadenopathy Lymphatic: no lymphadenopathy noted Chest: Chest palpation & inspection: normal inspection of the chest Resp: Effort & Inspection: normal respiratory effort and able to speak in complete sentences Auscultation: clear to auscultation bilaterally, no crackles, no rales, no rhonchi and no wheezes Cardio: Rate: regular rate Rhythm: regular rhythm Heart sounds: S1 normal heart sound present and S2 normal heart sound present GI: Inspection: Yes normal to inspection Skin: General skin exam: no rashes or lesions noted Trauma: no lacerations or abrasions Wounds: no wounds Neuro: General: patient oriented x3 and moves all extremities Cranial nerves: Yes CN's II-XII intact bilaterally, Yes Equal, round and reactive pupils present and Yes Bilaterally intact EOM present Cognition (Neuro): normal cognition Gait exam (Neuro): Normal gait present Motor exam (neuro): 5/5 motor strength present throughout Extrem: General: Yes normal to inspection Right upper extremity: normal to inspection Left upper extremity: normal to inspection Right lower extremity: normal to inspection Left lower extremity: normal to inspection Medications Administered Discontinued Medications Generic Name Dose Route Start Last Admin Trade Name Freq PRN Reason Stop Dose Admin Lactated Ringer's 1,000 mls @ 999 mls/hr 12/05/24 15:03 12/05/24 16:15 Lr IV 12/05/24 16:03 Infused .Q1H1M ONE Infusion Acetaminophen 1,000 mg in 100 mls @ 400 mls/hr 12/05/24 15:03 12/05/24 15:30 Ofirmev IV 12/05/24 15:17 Infused ONCE ONE Infusion Lactated Ringer's 1,000 mls @ 999 mls/hr 12/05/24 17:09 12/05/24 17:31 Lr IV 12/05/24 18:09 999 mls/hr .Q1H1M ONE Administration Ondansetron HCl 4 mg 12/05/24 15:02 12/05/24 15:14 Ondansetron Hcl 4 Mg/2 Ml Vial IVPUSH 12/05/24 15:03 4 mg ONCE ONE Administration Medical Decision Making Medical Decision Making MDM Narrative: This is a 19-year-old female who presents emergency department with concerns of syncopal episode which occurred this afternoon. On arrival, vital signs within normal limits, she is speaking full sentences under no acute distress. Head is normocephalic, atraumatic. No neurologic focal deficits on examination. Patient reports that she nearly collapsed in a coworkers arms after vomiting, she states that she did not hit her head however does report she blacked out for an unknown period of time. Patient reports that she has had dizziness upon standing, dizziness improves with resting. She denies any chest pain or shortness for breath. She has been in her usual state of health. She states that she has had history of similar symptoms after vomiting and having diarrhea. Differential diagnoses include vasovagal syncope, electrolyte derangement, orthostatic hypotension, ICH just unlikely, C-spine fracture. Plan: Labs, EKG, CT head and neck, UA, will medicate with IV fluids and IV Zofran. 5:23 PM 12/05/2024 (Charla Dias PA-C): Orthostatic vital signs were performed nursing home into her IV fluids. Patient does not appear to be orthostatic however blood pressure on the lower end, will medicate with 2 liter of lactated Ringer's. Patient re-evaluated, she is feeling much better, dizziness has resolved. CT head and neck unremarkable for any acute findings. Labs returned, she has no leukocytosis, stable H&H, chemistry revealing no significant electrolyte derangement. 6:51 PM 12/05/2024 (Charla Dias PA-C): Patient asymptomatic. Feeling much better. No longer having a headache or dizziness. Likely experienced a vasovagal episode secondary to dehydration and vomiting. Patient discharged with Zofran. Her otherwise workup was reassuring. Patient discharged with strict return precautions. Patient stable for discharge. Differential Diagnosis Differential Diagnoses: The differential diagnosis associated with the presentation includes See above Admission/Observation Consideration of admission/observation: Escalation of care including admission/observation considered Lab Data [facility] Lab Attestation statement: I reviewed the patient's lab results. See [facility] 12/05/24 14:48 12/05/24 14:48 Labs: Lab Results 12/05/24 12/05/24 Range/Units 14:48 16:35 WBC 7.1 (4.8-10.8) X10*3/uL RBC 4.30 (4.20-5.50) X10*6/uL Hgb 13.0 (12.0-16.0) g/dl Hct 37.5 (37.0-47.0) % MCV 87.2 (80.0-98.0) fL MCH 30.2 (27.0-33.0) pg MCHC 34.7 (31.0-35.0) g/dl RDW 13.0 (11.0-16.0) % Plt Count 310 (160-400) X10*3/uL MPV 9.2 L (9.4-12.3) fL Immature Gran % (Auto) 0.3 (0.0-0.4) % Neut % (Auto) 52.5 (45-73) % Lymph % (Auto) 36.4 (20-40) % [place] % (Auto) 7.7 (2-11) % Eos % (Auto) 2.5 (0-4) % Baso % (Auto) 0.6 (0-2) % Lymph # (Auto) 2.6 (1.2-4.9) X10*3/uL [place] # (Auto) 0.6 (0.1-1.2) X10*3/uL Eos # (Auto) 0.2 (0.0-0.4) X10*3/uL Baso # (Auto) 0.0 (0.0-0.2) X10*3/uL Abs Immat Gran (auto) 0.02 (0.00-0.03) X10*3/uL Absolute Neuts (auto) 3.7 (2.0-8.3) x10*3/uL Absolute Nucleated RBC 0.000 (0.0-0.012) X10*3/uL Nucleated RBC % (auto) 0.0 (0.0-0.2) /100WBC Sodium 142 (135-145) mmol/L Potassium 3.7 (3.3-5.1) mmol/L Chloride 112 H (96-108) mmol/L Carbon Dioxide 23 (22-29) mmol/L Anion Gap 11 L (12-20) BUN 14 (9-16) mg/dL Creatinine 0.64 (0.5-1.4) mg/dL Estim Creat Clear Calc 126.1 Estimated GFR > 60 Random Glucose 76 (60-115) mg/dL Calcium 9.0 (8.4-10.2) mg/dL Magnesium 1.9 (1.6-2.6) mg/dL Total Bilirubin 0.7 (0.0-1.0) mg/dL Direct Bilirubin 0.2 (0.0-0.5) mg/dL AST 20 (5-31) U/L ALT 15 (0-31) U/L Alkaline Phosphatase 75 (39-117) U/L Troponin I High Sens < 2.7 (<3.5-17.0) ng/L Total Protein 7.0 (6.5-8.0) g/dL Albumin 4.5 (3.5-5.0) g/dL Beta HCG, Quant < 2 mIU/mL Urine Color Yellow Urine Appearance Clear Urine pH 6.0 (5.0-9.0) Ur Specific [place] 1.015 (1.005-1.025) Urine Protein Negative (Neg-Trace) mg/dL Urine Glucose (UA) Negative (Negative) mg/dL Urine Ketones Negative (Negative) mg/dL Urine Blood Negative (Negative) Urine Nitrite Negative (Negative) Ur Leukocyte Esterase Moderate (2+) H (Negative) Urine RBC 0-2 (0-2) /HPF Urine WBC 11-20 H (0-5) /HPF Ur Squamous Epith Cells 3-5 (0-2) /HPF Urine Bacteria None Seen (None Seen) Hyaline Casts 0-2 (0-2) /LPF Independent Interpretation I performed an independent interpretation of an: EKG Interpretation: EKG normal sinus rhythm with sinus arrhythmia at a ventricular rate of 73 beats per minute, ME interval 156, QT QTC 386/425, no STEMI Radiology Impression Discussion of test interpretation with radiology: I have reviewed the radiologist's reading. Radiologist Impression: FINDINGS: There is no acute ischemic change. There is no intracranial hemorrhage. There is no mass-effect or midline shift. Basal cisterns and ventricles are within normal limits for age/cerebral volume. Orbits are symmetrical and unremarkable. Paranasal sinuses and mastoid air cells are pneumatized. There are no bony abnormalities. CT/CT head/brain wo IV con IMPRESSION: No acute intracranial abnormality. Electronically signed by: Tarik Breen MD 12/05/2024 04:31 PM EDT Dictated By: Tarik Breen MD FINDINGS: Motion mildly degrades the images. No fractures are identified. There is no prevertebral soft tissue edema. There is mild reversal cervical lordosis. CT/CT cervical spine wo IV con IMPRESSION: There is mild reversal of cervical lordosis. This can be related to positioning, muscle spasm, or posterior soft tissue injury. Electronically signed by: Tarik Beren MD 12/05/2024 05:02 PM EDT RP Dictated By: Tarik Breen MD Discharge Plan Discharge Clinical Impression: Vasovagal syncope Patient Disposition: Home, Self-Care Instructions: Syncope (ED) Additional Instructions: You were seen in the emergency department today. You likely experience a vasovagal syncopal episode after vomiting. Your CT of your head and neck was unremarkable. Your blood work, EKG and workup was otherwise reassuring. You were feeling much better after receiving IV fluids and IV Tylenol and IV nausea medication. If any new or worsening symptoms occur including but not limited to severe headache, dizziness, another syncopal episode, please seek emergent care. Prescriptions: New ondansetron 4 mg tablet,disintegrating 4 mg PO Q6H PRN (Reason: nausea and vomiting) Qty: 10 0RF No Action cyclobenzaprine 10 mg tablet 10 mg PO TID PRN (Reason: muscle spasm) Qty: 14 0RF ondansetron 4 mg tablet,disintegrating 4 mg PO Q8H PRN (Reason: nausea and vomiting) Qty: 20 0RF amoxicillin-pot clavulanate 875-125 mg tablet 1 tab PO BID Qty: 14 0RF loperamide [Imodium A-D] 2 mg tablet 2 mg PO Q6H PRN (Reason: loose stool) Qty: 7 0RF ondansetron 4 mg tablet,disintegrating 4 mg PO Q6-8H PRN (Reason: nausea and vomiting) Qty: 7 0RF cefuroxime axetil 250 mg tablet 250 mg PO BID 7 Days Qty: 14 0RF phenazopyridine [Pyridium] 200 mg tablet 200 mg PO TID 2 Days Qty: 6 0RF Stand Alone Forms: Work/School Release Interventions: ED Discharge Assessment Last Done: 12/05/24 18:43 Discharge Date/Time: 12/05/24 18:45 Print Language: [place]
--- NOTE | 2024-12-05 14:45 | ECG_ITS ---
Test Reason : SYNCOPE Blood Pressure : */* mmHG Vent. Rate : 73 BPM Atrial Rate : 73 BPM P-R Int : 156 ms QRS Dur : 82 ms QT Int : 386 ms P-R-T Axes : 59 68 47 degrees QTcB Int : 425 ms Normal sinus rhythm with sinus arrhythmia Normal ECG No previous ECGs available Referred By: Charla Dias Electronically Signed By: LIBRA JAIME MD
[2024-12-05 14:52] LABS: MANUAL DIFF FLAG NO
[2024-12-05 14:53] LABS: Hematocrit 37.5 % (37.0-47.0); Hemoglobin 13.0 g/dl (12.0-16.0); Imm Gran Abs Auto 0.02 X10*3/uL (0.00-0.03); Imm Gran Pct Auto 0.3 % (0.0-0.4); Lymphocytes Absolute Auto 2.6 X10*3/uL (1.2-4.9); Mean Corpuscular HGB Conc 34.7 g/dl (31.0-35.0); Mean Corpuscular Hemoglobin 30.2 pg (27.0-33.0); Mean Corpuscular Volume 87.2 fL (80.0-98.0); NRBC Abs Auto 0.000 X10*3/uL (0.0-0.012); NRBC Pct Auto 0.0 /100WBC (0.0-0.2); Platelet Count 310 X10*3/uL (160-400); Red Blood Count 4.30 X10*6/uL (4.20-5.50); White Blood Count 7.1 X10*3/uL (4.8-10.8)
--- NOTE | 2024-12-05 14:54 | PC.NURSE ---
Patient is a 19 yo female with a pmh of asthma and ovarian cyst presents via EMS after having a syncopal episode with positive LOC, negative thinners. C-collar intact and collar cleared by the provider. No neuro deficits noted. c/o [place]. Lungs clear bilat. Respirations even and non-labored. Abdomen soft, non-tender with positive bowel sounds. Positive pedal pulses with no edema.
[2024-12-05] MEDS: Lactated Ringers 1,000 ML 999 ML IV ×2 (15:14→17:31)
[2024-12-05 15:15] LABS: Alanine Aminotransferase 15 U/L (0-31); Albumin Level 4.5 g/dL (3.5-5.0); Alkaline Phosphatase 75 U/L (39-117); Anion Gap 11 (12-20); Aspartate Amino Transferase 20 U/L (5-31); Blood Urea Nitrogen 14 mg/dL (9-16); Calcium 9.0 mg/dL (8.4-10.2); Carbon Dioxide 23 mmol/L (22-29); Chloride 112 mmol/L (96-108); Creatinine Clr Calc Pharmacy 126.1; Estimated Glomerular Filt Rate > 60; Magnesium 1.9 mg/dL (1.6-2.6); Potassium 3.7 mmol/L (3.3-5.1); Sodium 142 mmol/L (135-145); Total Protein 7.0 g/dL (6.5-8.0)
[2024-12-05 15:16] LABS: Troponin-I High Sensitivity < 2.7 ng/L (<3.5-17.0)
[2024-12-05 16:45] LABS: Appearance Urine Clear; Glucose Urine UA Negative (Negative); PH 6.0 (5.0-9.0); Specific Gravity - Urine 1.015 (1.005-1.025); UMIC TRIGGER UACC YES
[2024-12-05 16:48] LABS: UACC Culture Trigger YES
== END 2024-12-05 18:45 | disposition home or self-care (01) ==
PROVIDERS: Physician Assistant Medical; Emergency Provider Emergency Medicine
DX: R55 Syncope and collapse (principal); R51.9 Headache, unspecified; R11.2 Nausea with vomiting, unspecified
CPT/HCPCS: 36415; 70450; 72125; 80048; 80076; 81001; 83735; 84484; 84702; 85025; 87086; 93005; 96361; 96365; 96375; 99284; 99285; J0131; J2405; J7120

== ENCOUNTER → 2024-12-05 14:45 | Outpatient (BNV) | payer MEDICAID, SELFPAY | PROVIDERS: Emergency Provider Emergency Medicine; Visit Provider Internal Medicine Cardiovascular Disease | DX: R55 Syncope and collapse (principal) | CPT/HCPCS: 93010 ==

== ENCOUNTER → 2024-12-05 15:03 | Outpatient (BNV) | payer MEDICAID, SELFPAY | PROVIDERS: Emergency Provider Emergency Medicine; Visit Provider Radiology Diagnostic Radiology | DX: R51.9 Headache, unspecified (principal); R55 Syncope and collapse | CPT/HCPCS: 70450; 72125 ==

== ENCOUNTER 2025-02-02 18:25 | Outpatient (REF) | payer MEDICAID, OTHER, SELFPAY ==
--- OUTSIDE RECORDS SUMMARY | 2025-02-02 15:45 | XMS_ITS | Encounter Summary ---
Author Organization [employer] Address [address] [facility] [address] [place] [address] Care Team Providers Care Barrel Lathe Operator Outside Name Role Phone AbebaSamanta horn Primary Care Provider Reason for Referral * Imaging (Urgent) - Authorized Specialty Diagnoses / Procedures Referred By Blake cid Referred To Contact Radiology Diagnoses Pelvic pain Left ovarian cyst Encounter for routine checking of intrauterine contraceptive device (IUD) Procedures US Pelvis Transvaginal Giselle Grewal CNM [address] [place] [address] Phone: tel: fax: [address] Phone: tel: fax: Referral ID Status Reason Start Date Expiration Date V isits Requested Visits Authorized [id number] Authorized 02/02/2025 02/02/2026 1 1 * Imaging (Urgent) - Authorized Specialty Diagnoses / Procedures Referred By Blake cid Referred To Contact Radiology Diagnoses Pelvic pain Left ovarian cyst Encounter for routine checking of intrauterine contraceptive device (IUD) Procedures Us Pelvis complete Giselle Grewal CNM [address] [place] [address] Phone: tel: fax: [address] Phone: tel: fax: Referral ID Status Reason Start Date Expiration Date V isits Requested Visits Authorized [id number] Authorized 02/02/2025 02/02/2026 1 1 Reason for Visit * Reason Comments pelvic Encounter Details Date Type Department Care Team (Latest Contact Info) Description 02/02/2025 3:45 PM EST Office Visit [facility] [address] [place] [address] Giselle Grewal CNM [address] [place] [address] Pelvic pain (Primary Dx); Encntr screen for [...] at all 02/02/2025 3:53 PM EST Marisol lAberto MA * Feeling tired or having little [...] kg) LMP 10/28/2024 SpO2 98% Physical Exam Corrosion Technician present: declines instrumentation tech. Constitutional: Appearance: Normal appearance. Genitourinary: General: Normal [...] Type Priority Associated Diagnoses Orde r Schedule Chlamydia/N. Gonorrhoeae RNA, TMA, Vagina Microbiology Routine Encntr screen for infections w sexl mode of transmiss Ordered: 02/02/2025 Bacterial Vaginosis, Yeast and Trich Microbiology Routine Encntr screen for infections w sexl mode of transmiss Ordered: 02/02/2025 Us Pelvis complete Imaging Urgent Pelvic pain Left ovarian cyst Encounter for routine checking of intrauterine contraceptive device (IUD) Expected: 02/02/2025, Expires: 02/02/2026 US Pelvis Transvaginal Imaging Urgent Pelvic pain Left ovarian cyst Encounter for routine checking of intrauterine contraceptive device (IUD) Expected: 02/02/2025, Expires: 02/02/2026 documented as of this encounter Procedures Procedure Name Priority Date/Time Associated Diagnosis Comments POCT , URINE Routine 02/02/2025 3:49 PM EST Pelvic pain documented in this encounter Results * POCT , urine manually resulted (02/02/2025 3:49 PM EST) Preg Test, Ur Negative Negative, Indeterminate, None Detected, Invalid, Specimen unsatisfactory for evaluation, Weakly Positive, 2+ QC Media Lot # [id number] Lot# Expiration Date [id number] Urine 02/02/2025 3:49 PM EST Giselle OLIVA POINT OF CARE TEST ENTER/ EDIT ORDERABLES Final Result documented in this encounter Visit Diagnoses Diagnosis Pelvic pain- Primary Encntr screen for infections w sexl mode of transmiss Left ovarian cyst Other and unspecified ovarian cyst Encounter for routine checking of intrauterine contraceptive device (IUD) documented in this encounter Care Teams Barrel Lathe Operator Outside Relationship Specialty Start Date End Date Samanta Adams DO [address] [place] [address] PCP - General Family Medicine 08/04/24 documented as of this encounter
--- OUTSIDE RECORDS SUMMARY | 2025-02-02 18:54 | XMS_ITS | Encounter Summary ---
Author Organization [employer] Address [address] [facility] 7t [place] [address] Care Team Providers Care Coloring Checker Name Role Phone Samanta Adams DO Primary Care Provider + [phone] Encounter Details Date Type Department Care Team (Latest Contact Info) Description 02/02/2025 Travel Social History Tobacco Use Types Packs/Day [...] Q2 Not on file 02/02/2025 Comments No Sex and Gender Information Value Date Recorded Sex Assigned at Female 07/30/2024 9:42 AM EDT Legal Sex Female 1:51 PM EST Gender Identity Female 07/30/2024 9:42 AM EDT Sexual Orientation Choose not to disclose 2024 9:42 AM EDT documented as of this encounter Functional Status * Over the [...] 02/02/2025 3:53 PM EST Marisol Alberto MA documented as of this encounter Plan of Treatment Not on file documented as of this encounter Visit Diagnoses Not on filedocumented in this encounter Care Teams Coloring Checker Relationship Specialty Start Date End Date Samanta Adams DO [address] [place] [phone] PCP - General Family Medicine 08/04/24 documented as of this encounter
--- OUTSIDE RECORDS SUMMARY | 2025-02-02 18:54 | XMS_ITS | Encounter Summary ---
Author Organization [employer] Address [address] [facility] 7t [place] [address] Care Team Providers Care Legal Support Assistant Name Role Phone Samanta Adams DO Primary Care Provider + [phone] Reason for Visit * Reason Onset Date Comments Referral 01/31/2025 Encounter Details Date Type Department Care Team ([facility] st Contact Info) Description 01/31/2025 Telephone [facility] [address] [place] [address] Samanta Adams DO [address] [place] [address] Referral Social History Tobacco Use Types Packs/Day Years [...] Access Q2 Not on file 02/02/2025 Comments Unknown Sex and Gender Information Value Date Recorded Sex Assigned at Female 07/30/2024 9:42 AM EDT Legal Sex Female 1:51 PM EST Gender Identity Female 07/30/2024 9:42 AM EDT Sexual Orientation Choose not to disclose 2024 9:42 AM EDT documented as of this encounter Miscellaneous Notes * Telephone Encounter - Evelyn Cummings RN - 02/01/2025 12:19 PM EST TC returned to pt. Pt. Reports L sided pelvic pain described as cramping on/off for 1 week. Pt. Reports she was at [facility] ED in July and L sided cyst was found, pt. Was recommended to f/up with PHOTOGRAPHIC REPRODUCTION TECHNICIAN but was never called. Per ED note, complex cyst 2.3cm within L ovary. Pt. Reports cyst had not bothered her for a while but now pain has recurred and pt. Would like cystrechecked. Due to insurance, pt. Can not be referred to PHOTOGRAPHIC REPRODUCTION TECHNICIAN as requested but agrees to appointment with YUMIKO Desai tomorrow at 3:45 for evaluation * Telephone Encounter - Jose J Keating - 01/31/2025 3:48 PM EST Tc from pt requesting to a referral to a OBGYN Contact pt at [phone] (latvian) documented in this encounter Plan of Treatment Not on file documented as of this encounter Visit Diagnoses Not on filedocumented in this encounter Care Teams Legal Support Assistant Relationship Specialty Start Date End Date Samanta Adams DO [address] [place] [id number] PCP - General Family Medicine 08/04/24 documented as of this encounter
--- OUTSIDE RECORDS SUMMARY | 2025-02-02 18:55 | XMS_ITS | Encounter Summary ---
Author Organization [employer] Address [address] [facility] [address] [place] [address] Care Team Providers Care Radio Interference Trouble Shooter Name Role Phone Samanta Adams DO Primary Care Provider + [phone] Encounter Details Date Type Department Care Team (Late st Contact Info) Description 02/01/2025 Telephone [facility] [address] [place], [place] [phone] Marisol Alberto MA Social History Tobacco Use Types Packs/Day Years Used Date Smoking Tobacco: Never Smokeless Tobacco: Never Alcohol Use Standard Drinks/Week Comments Never 0 (1 standard drink = 0.6 oz pur e alcohol) Housing Stability Answer Date Recorded What is your housing situation today? I have luiskasandra redd 02/02/[address] you [...] encounter Miscellaneous Notes * Telephone Encounter - Marisol Alberto MA - 02/01/2025 2:45 PM EST Chart Prep Labs: done Images: not applicable Referrals: internal Vaccines due: Covid, Flu, PCV20, Tdap, and HPV Screenings: not applicable Overdue care gaps: SBIRT, SDOH, PHQ-9, and Disability screen documented in this encounter Plan of Treatment Not on file documented as of this encounter Visit Diagnoses Not on filedocumented in this encounter Care Teams Radio Interference Trouble Shooter Relationship Specialty Start Date End Date Samanta Adams DO [address] [place] [phone] PCP - General Family Medicine 08/04/24 documented as of this encounter
--- OUTSIDE RECORDS SUMMARY | 2025-02-02 18:55 | XMS_ITS | Clinical Summary ---
Author Organization [employer] Address [address] [facility] [address]t [place] [address] Care Team Providers Care Rail Technician Name Role Phone Samanta Adams Primary Care Provider Allergies No known active allergies Medications albuterol 108 (90 Base) MCG/ACT inhalerIndicatio ns:Asthma, unspecified asthma severity, unspecified whether complicated, unspecified whether persistent Inhale 2 puffs every 6 (six) hours if needed for wheezing. 18 g 11 5 07/31/19 26 Active fluticasone furoate (Arnuity Ellipta) 100 MCG/ACT inhalerIndicatio ns:Asthma, unspecified asthma severity, unspecified whether complicated, unspecified whether persistent Inhale 1 puff Once per day. Rinse mouth with water after use to reduce aftertaste and incidence of candidiasis. Do not swallow. 1 each 5 07/31/19 26 Active montelukast (Singulair) 10 MG tabletIndication s:Asthma, unspecified asthma severity, unspecified whether complicated, unspecified whether persistent Take 1 tablet (10 mg) by mouth Once per day. 30 tablet 2 5 Active ibuprofen 600 MG tablet Take 1 tablet (600 mg) by mouth every 6 (six) hours if needed for mild pain. 60 tablet 1 5 08/05/19 26 Active acetaminophen (Tylenol 8 Hour) 650 MG ER tablet Take 1 tablet (650 mg) by mouth every 8 (eight) hours if needed for mild pain. Do not crush, chew, or split. 60 tablet 1 5 08/05/19 26 Active Active Problems Problem Noted Date Diagnosed Date Asthma 07/30/2024 Seasonal allergies 07/30/2024 IUD (intrauterine device) in place 07/30/2024 Encounters Date Type Department Care Team Description 02/02/2025 3:45 PM EST Office Visit [facility] [address] [place] [address] Giselle Grewal CNM Pelvic pain (Primary Dx); Encntr screen for infections w sexl mode of transmiss; Left ovarian cyst; Encounter for routine checking of intrauterine contraceptive device (IUD) 02/02/2025 Travel 02/01/2025 Telephone [facility] [address] [place] [address] Remy Marisol [place] 01/31/2025 Telephone [facility] [address] [place] [address] Samanta Adams DO Referral from Last 3 Months Social History Tobacco [...] Health Maintenance Due Date Last Done Comments HIV Screening 2004 HPV Vaccines (1 - 3-dose series) 02/19/2019 Meningococcal B Vaccine (1 o f 2 - Standard) 2020 Hepatitis C Screening 02/19/2022 DTaP/Tdap/Td Vaccines (1 - Tdap) 02/19/2023 Hepatitis B Vaccines (1 of 3 - 19+ 3-dose series) 02/19/2023 Pneumococcal Vaccine: Pediatrics (0 to 5 Years) and At-Risk Patients (6 to 49) Years (1 of 2 - PCV) 02/19/2023 COVID-19 Vaccine (1 - 2023-2 5 season) 2024 Influenza Vaccine (#1) 2024 Chlamydia and Gonorrhea Screening 08/04/2025 08/04/2024 Alcohol/Substance Use Screening 02/02/2026 02/02/2025 Depression Screening 02/02/2026 02/02/2025, 02/02/2025 Disability Screening 02/02/2026 02/02/2025 Family Planning (PISQ) 02/02/2026 02/02/2025 SDOH Screening 02/02/2026 02/02/2025 Tobacco Screening 02/02/2026 02/02/2025 Zoster Vaccines (1 of 2) 02/19/2054 RSV Patients and Patients Aged 60 years or older (1 - [...] Routine 02/02/2025 3:49 PM EST Pelvic pain CHLAMYDIA/N. GONORRHOEAE RNA, TMA, UROGENITAL Routine 08/04/2024 1:21 PM EDT Pain of ovary from Last 3 Months or Most Recently Relevant to Health Maintenance Results * POCT , urine manually resulted (02/02/2025 3:49 PM EST) Preg Test, Ur Negative Negative, Indeterminate, None Detected, Invalid, Specimen unsatisfactory for evaluation, Weakly Positive, 2+ QC Media Lot # [id number] Lot# Expiration Date [id number] Urine 02/02/2025 3:49 PM EST Giselle OLIVA POINT OF CARE TEST ENTER/ EDIT ORDERABLES Final Result * (ABNORMAL) Chlamydia/N. Gonorrhoeae RNA, TMA, Urogenitial (08/04/2024 1:21 PM EDT) CT PCR DETECTED(A) Not Detect. [facility] Comment:Detected results may be observed [...] the ordering clinician orclinical facility to the [facility] required by state law. NG PCR NOT DETECTED Not Detect. [facility] Comment:A not detected test result [...] to adverse medical, social or psychologicalconsequences. Swab (Vaginal Swab) 08/04/2024 1:21 PM EDT 08/04/2024 4:19 PM EDT Narrative [facility] - 08/05/2024 11:57 AM EDT Vaginal us Samanta Adams DO LAB MICROBIOLOGY - GENERAL O RDERABLES Final Result [facility] [address] [place] [phone] from Last 3 Months or Most Recently Relevant to Health Maintenance Insurance [employer] H[employer] FULL Care Teams Rail Technician Relationship Specialty Start Date End Date Samanta Adams DO [address] [place] [phone] PCP - General Family Medicine 08/04/24
[2025-02-03 04:24] LABS: Bacterial Vaginosis PCR POSITIVE (Negative); Candida Group PCR NOT DETECTED (Not Detect); Candida glab krusei PCR NOT DETECTED (Not Detect); Trichomonas vaginalis PCR DETECTED (Not Detect)
[2025-02-03 04:55] LABS: CT PCR DETECTED (Not Detect.); NG PCR NOT DETECTED (Not Detect.)
== END 2025-02-02 18:26 | disposition home or self-care (01) ==
LOC: HO.HHCLNP 18:25
PROVIDERS: Visit Provider Advanced Practice Midwife
DX: Z20.2 Contact with and (suspected) exposure to infections with a predominantly sexual mode of transmission (principal)
CPT/HCPCS: 81515; 87491; 87591

== ENCOUNTER 2025-02-03 15:18 | Outpatient (REF) | payer MEDICAID, OTHER, SELFPAY ==
--- OUTSIDE RECORDS SUMMARY | 2025-02-02 15:45 | XMS_ITS | Encounter Summary ---
Author Organization [employer] Address [address] [facility] 7t [place] [address] Care Team Providers Care Creative Project Manager Name Role Phone AbebaSamanta horn Primary Care Provider Reason for Referral * Imaging (Urgent) - Authorized Specialty Diagnoses / Procedures Referred By Blake cid Referred To Contact Radiology Diagnoses Pelvic pain Left ovarian cyst Encounter for routine checking of intrauterine contraceptive device (IUD) Procedures US Pelvis Transvaginal Giselle Grewal CNM [address] [place] [address] Phone: tel: fax: [address] Phone: tel: fax: Referral ID Status Reason Start Date Expiration Date V isits Requested Visits Authorized [id number] Authorized 02/02/2025 02/02/2026 1 1 * Imaging (Urgent) - Authorized Specialty Diagnoses / Procedures Referred By Blake cid Referred To Contact Radiology Diagnoses Pelvic pain Left ovarian cyst Encounter for routine checking of intrauterine contraceptive device (IUD) Procedures Us Pelvis complete Giselle Grewal CNM [address] [place] [address] Phone: tel: fax: [address] Phone: tel: fax: Referral ID Status Reason Start Date Expiration Date V isits Requested Visits Authorized [id number] Authorized 02/02/2025 02/02/2026 1 1 Reason for Visit * Reason Comments pelvic Encounter Details Date Type Department Care Team (Latest Contact Info) Description 02/02/2025 3:45 PM EST Office Visit [facility] [address] [place] [address] Giselle Grewal CNM [address] [place] [address] Pelvic pain (Primary Dx); Encntr screen for infections w sexl mode of transmiss; Left ovarian cyst; Encounter for routine checking of intrauterine contraceptive device (IUD) Social History Tobacco Use Types Packs/Day Years Used Date Smoking Tobacco: Never Smokeless Tobacco: Never Tobacco Cessation:Counseling Given: Not Answered Alcohol Use Standard Drinks/Week Comments Never 0 (1 standard drink = 0.6 oz pur e alcohol) Housing Stability Answer Date Recorded What is your housing situation today? I have luis redd 02/02/[address] you li ve. Do you have problems with any of the following? None of the above 02/02/2025 Food Insecurity Answer Date Recorded Within the past 12 months, y ou worried that your food would run out before you got money to buy more: Never True 02/02/2025 Within the past 12 months,th e food you bought just didn't last and you didn't have enough money to get more: Never True 08/2024 Transportation Answer Date Recorded In the past 12 months, has l ack of transportation kept you from medical appts, meetings, work or from getting things needed for daily living? No 02/02/2025 Utilities Answer Date Recorded In the past 12 months, has t he electric, gas, oil or water company threatened to shut off services in your home? No 02/02/2025 Depression Answer Date Recorded Patient Health Questionnaire-2 Score 0 02/02/2025 Internet Access Answer Date Recorded Internet Access Q1 Yes 02/02/2025 Internet Access Q2 Not on file 02/02/2025 Comments No Intention Date Recorded No desire to become (finding) 1 04/04/2024 Sex and Gender Information Value Date Recorded Sex Assigned at Female 07/30/2024 9:42 AM EDT Legal Sex Female 1:51 PM EST Gender Identity Female 07/30/2024 9:42 AM EDT Sexual Orientation Choose not to disclose 2024 9:42 AM EDT documented as of this encounter Last Filed Vital Signs Vital Sign Reading Time Taken Comments Blood Pressure 128/60 02/02/2025 3:34 PM EST Pulse 85 02/02/2025 3:34 PM EST Temperature 35.9 C (96.7 F) 02/02/2025 3:34 PM EST Respiratory Rate 14 02/02/2025 3:34 PM EST Oxygen Saturation 98% 02/02/2025 3:34 PM EST Inhaled Oxygen Concentration - - Weight 72.4 kg (159 lb 9.6 oz) 02/02/2025 3:34 P M EST Height - - Body Mass Index - - documented in this encounter Functional Status * Over the past 2 weeks, how often have you been bothered by any of the following problems? Question Answer Date of Assessment Author Patient Health Questionnaire-2 Score 0 08/2024 3:53 PM EST Marisol Alberto MA * Little interest or pleasure in doing things Answer Date of Assessment Author Not at all 02/02/2025 3:53 PM EST Marisol Alberto MA * Feeling down, depressed, or hopeless Answer Date of Assessment Author Not at all 02/02/2025 3:53 PM EST Marisol Alberto MA * Trouble falling or staying asleep, or sleeping too much Answer Date of Assessment Author Not at all 02/02/2025 3:53 PM EST Marisol Alberto MA * Feeling tired or having little energy Answer Date of Assessment Author Not at all 02/02/2025 3:53 PM EST Marisol Alberto MA * Poor appetite or overeating Answer Date of Assessment Author More than half the days 02/02/2025 3:53 PM EST Marisol Denise MA * Feeling bad about yourself - or that you are a failure or have let yourself or your family down Answer Date of Assessment Author Not at all 02/02/2025 3:53 PM Marisol Thompson MA documented as of this encounter Progress Notes * Giselle Grewal CNM - 02/02/2025 3:45 PM EST Subjective Patient ID: Serenity Murcia is a 19 y.o. female who presents for pelvic pain Here with son, Adolfo. Notes LLQ pain off/on for months. It sounds like it began after childbirth but has worsened. Notes some bleeding after sex recently. Treated for chlamydia, bacterial vaginosis and trichomonas 07/2024. Reports partner was treated as well for trichomonas and chlamydia. Has Mirena, inserted about a year ago. Happy with method. Seen in ER 07/2024 for pelvic pain. 07/2024 Pelvic ultrasound with 2.3cm left complex ovarian cyst, 3-6m followup advised, IUD in good position on ultrasound. Review of Systems Constitutional: Negative for chills and fever. Genitourinary: Positive for pelvic pain. Negative for dyspareunia, dysuria, menstrual problem, vaginal bleeding, vaginal discharge and vaginal pain. Objective BP 128/60 (BP Location: Left arm, Patient Position: Sitting, BP Cuff Size: Adult) Pulse 85 Temp96.7 ??F (35.9 ??C) (Oral) Resp 14 Wt 159 lb 9.6 oz (72.4 kg) LMP 10/28/2024 SpO2 98% Physical Exam Family Intervention Specialist present: declines nutritional assistant. Constitutional: Appearance: Normal appearance. Genitourinary: General: Normal vulva. Labia: Right: No rash, tenderness, lesion or injury. Left: No rash, tenderness, lesion or injury. Vagina: Normal. No signs of injury and foreign body. No vaginal discharge, erythema, tenderness, bleeding or lesions. Cervix: No cervical motion tenderness, discharge, friability, lesion, erythema, cervical bleeding or eversion. Uterus: Normal. Not enlarged and not tender. Adnexa: Right adnexa normal and left adnexa normal. Right: No mass, tenderness or fullness. Left: No mass, tenderness or fullness. Comments: IUD strings noted. Body of IUD nonpalpable Neurological: Mental Status: She is alert. Psychiatric: Mood and Affect: Mood normal. Behavior: Behavior normal. Assessment/Plan Diagnoses and all orders for this visit: Pelvic pain - POCT , urine manually resulted - Us Pelvis complete; Future - US Pelvis Transvaginal; Future Benign pelvic exam, not suspicious for PID. Will check STI and ultrasound and contact with results.Seek care urgently if severe pain or heavy bleeding. If all testing today negative, consider more thorough pelvic floor assessment. Will be due for pap at end of this month. Encntr screen for infections w sexl mode of transmiss - Chlamydia/N. Gonorrhoeae RNA, TMA, Vagina - Bacterial Vaginosis, Yeast and trichomonas Vaginal infection testing as ordered. Will contact with results. Left ovarian cyst - Us Pelvis complete; Future - US Pelvis Transvaginal; Future Due for followup imaging. Ultrasound ordered. Let me know if not contacted about appointment by next week. Encounter for routine checking of intrauterine contraceptive device (IUD) - Us Pelvis complete; Future - US Pelvis Transvaginal; Future Happy with IUD, infrequent menses. Remove/replace by 8 years from insertion. documented in this encounter Plan of Treatment Scheduled Orders Name Type Priority Associated Diagnoses Orde r Schedule Us Pelvis complete Imaging Urgent Pelvic pain Left ovarian cyst Encounter for routine checking of intrauterine contraceptive device (IUD) Expected: 02/02/2025, Expires: 02/02/2026 US Pelvis Transvaginal Imaging Urgent Pelvic pain Left ovarian cyst Encounter for routine checking of intrauterine contraceptive device (IUD) Expected: 02/02/2025, Expires: 02/02/2026 documented as of this encounter Procedures Procedure Name Priority Date/Time Associated Diagnosis Comments BACTERIAL VAGINOSIS PANEL Routine 02/02/2025 4:15 PM EST Encntr screen for infections w sexl mode of transmiss CHLAMYDIA/N. GONORRHOEAE RNA, TMA, UROGENITAL Routine 02/02/2025 4:15 PM EST Encntr screen for infections w sexl mode of transmiss POCT , URINE Routine 02/02/2025 3:49 PM EST Pelvic pain documented in this encounter Results * (ABNORMAL) Bacterial Vaginosis, Yeast and Trich (02/02/2025 4:15 PM EST) TRICHOMONAS VAGINALIS DETECTION BY PCR DETECTED(A) Not Detect [facility] BACTERIAL VAGINOSIS DETECTION BY PCR POSITIVE(A) Negative [facility] Comment:The BV organism targ ets of the Xpert Xpress MVP test can becommensal in women; Xpert Xpress MVP positive results forbacterial vaginosis should be considered in conjunction withother clinical and patient information to determine thedisease status. Organisms that are not detected by the XpertXpress MVP test have also been reported to be associatedwith BV and aerobic vaginitis.The Xpert Xpress MVP test performance has not been evaluatedin patients under the age of 14. JESSICA GROUP DETECTION BY PCR NOT DETECTED Not Detect [facility] Jessica glab krusei PCR NOT DETECTED Not Detect [facility] Swab Vaginal structure / Unknown 02/02/2025 4:15 PM EST 02/02/2025 6:25 PM EST us Giselle Grewal [facility] MICROBIOLOGY - GENERA L ORDERABLES Final Result [facility] [address] [place] [phone] * (ABNORMAL) Chlamydia/N. Gonorrhoeae RNA, TMA, Vagina (02/02/2025 4:15 PM EST) CT PCR DETECTED(A) Not Detect. [facility] Comment:Detected results may be observed after successful antibiotictreatment due to target nucleic acids from residualnon-viable chlamydia. As with many diagnostic tests, resultsfrom the Xpert CT/NG assay should be interpreted inconjunction with other laboratory and clinical dataavailable to the clinician.Xpert CT/NG performance has not been evaluated in patientsless than 14 years of age. The assay should not be used forthe evaluationof suspected sexual abuse or for other medico- legalindications. Additional testing is recommended inany circumstance when false positive or false negativeresults could lead to adverse medical, social orpsychological consequences.These results must be reported by the ordering clinician orclinical facility to the [facility] required by state law. NG PCR NOT DETECTED Not Detect. [facility] Comment:A not detected test result does not exclude the possibilityof infection because test results can be affected byimproper specimen collection, concurrent antibiotic therapy,or the number of organisms in the specimen which may bebelow the sensitivity of the test. As with many diagnostictests, results from the Xpert CT/NG assay should beinterpreted in conjunction with other laboratory andclinical data available to the clinician.Xpert CT/NG performance has not been evaluated in patientsless than 14 years of age. The assay should not be used forthe evaluationof suspected sexual abuse or for other medico-legalindications. Additional testing is recommended in anycircumstance when false positive or false negative resultscould lead to adverse medical, social or psychologicalconsequences. Swab Vaginal structure / Unknown 02/02/2025 4:15 PM EST 02/02/2025 6:25 PM EST Giselle Grewal CNM LAB MICROBIOLOGY - GENERA L ORDERABLES Final Result [facility] [address] [place] [phone] * POCT , urine manually resulted (02/02/2025 3:49 PM EST) Preg Test, Ur Negative Negative, Indeterminate, None Detected, Invalid, Specimen unsatisfactory for evaluation, Weakly Positive, 2+ QC Media Lot # [id number] Lot# Expiration Date [id number] Urine 02/02/2025 3:49 PM EST Giselle OLIVA POINT OF CARE TEST ENTER/ EDIT ORDERABLES Final Result documented in this encounter Visit Diagnoses Diagnosis Pelvic pain- Primary Encntr screen for infections w sexl mode of transmiss Left ovarian cyst Other and unspecified ovarian cyst Encounter for routine checking of intrauterine contraceptive device (IUD) documented in this encounter Care Teams Creative Project Manager Relationship Specialty Start Date End Date Samanta Adams DO [address] [place] [id number] PCP - General Family Medicine 08/04/24 documented as of this encounter
--- NOTE | ~2025-02-03 | US_ITS ---
EXAMINATION: US PELVIS TRANSABDOMINAL AND TRANSVAGINAL HISTORY: f/u left ovarian cyst COMPARISON: Ultrasound 08/05/2024 TECHNIQUE: Transabdominal transvaginal evaluation FINDINGS: IUD present. Uterus: Uterus is anteverted and anteflexed, measuring 8.9 x 3.7 x 4.5 cm. Myometrium has a normal echotexture. Hypoechoic focus in the posterior lower body measuring 0.6 x 0.7 x 0.6 cm, could reflect a fibroid. Small fluid in the cervix. Endometrium: The endometrial stripe measures 4 mm in thickness. IUD present, appearing appropriately positioned. Right ovary: The right ovary measures 2.5 x 2.4 x 2.3 cm. Volume 7.2 mL. The right ovary is normal in size and echotexture. Normal vascular flow Left ovary: The left ovary measures 3.1 x 2.5 x 2.5 cm. Volume 10.1 mL . Anechoic avascular cyst measuring 2.1 x 1.4 x 1.5 cm. (Findings reviewed with the performing mountain bike guide). The previously noted complex cyst is not visualized. Normal vascular flow Pelvic fluid: Small free fluid.. US/US pelvic and transvaginal IMPRESSION: 1. 0.7 cm hypoechoic focus in the uterus, probable fibroid. 2. Interval resolution of previously seen complex cyst.. Bilateral ovaries appear unremarkable in today's study. Electronically signed by: Brad Cabrera MD 02/03/2025 04:36 PM [facility]
--- OUTSIDE RECORDS SUMMARY | 2025-02-03 16:25 | XMS_ITS | Encounter Summary ---
Author Organization [employer] Address [address] [facility] 7t [place] [address] Care Team Providers Care Environment Friendly Landscape Designer Name Role Phone Samanta Adams DO Primary Care Provider [phone] Encounter Details Date Type Department Care Team (Late st Contact Info) Description 02/03/2025 Telephone [facility] [address] [place] [address] Samanta Adams DO [address] [place] [address] Social History Tobacco Use Types Packs/Day Years [...] encounter Miscellaneous Notes * Telephone Encounter - Roxana Salcido RN - 02/03/2025 3:44 PM EST T/C to [phone] no answer left voicemail to return call to [place] team nurses. T/C to [phone] and caller states that [place] [facility] [facility] [place] and RN can confirm that pt is in the ED at this time. * Telephone Encounter - Samanta Adams DO - 02/03/2025 2:04 PM EST Please advise pt that her vaginal swabs again tested positive for chlamydia, trichomonas and BV. She needs to be retreated with doxycycline and metronidazole for one week as well as all sexual partners in the last 60 days. Please advise pt to refrain from any sexual activity for one week after both she and her partner have been treated. She needs to return to clinic in one mos to repeat testing. Thank you! documented in this encounter Plan of Treatment Not on file documented as of this encounter Visit Diagnoses Not on filedocumented in this encounter Care Teams Environment Friendly Landscape Designer Relationship Specialty Start Date End Date Samanta Adams DO [address] [place] [phone] PCP - General Family Medicine 08/04/24 documented as of this encounter
--- OUTSIDE RECORDS SUMMARY | 2025-02-03 16:25 | XMS_ITS | Encounter Summary ---
Author Organization [employer] Address [address] [facility] 7t [place] [address] Care Team Providers Care Worsted Winder Name Role Phone Samanta Adams DO Primary Care Provider + [phone] Encounter Details Date Type Department Care Team [...] on filedocumented in this encounter Care Teams Worsted Winder Relationship Specialty Start Date End Date Samanta Adams DO [address] [place] [phone] PCP - General Family Medicine 08/04/24 documented as of this encounter
--- OUTSIDE RECORDS SUMMARY | 2025-02-03 16:25 | XMS_ITS | Encounter Summary ---
Author Organization [employer] Address [address] [facility] 7t [place] [address] Care Team Providers Care Environmental Air Specialist Name Role Phone Samanta Adams DO Primary Care Provider + [phone] Reason for Visit * Reason Onset Date Comments Referral 01/31/2025 Encounter Details Date Type Department Care Team ([facility] st Contact Info) Description 01/31/2025 Telephone [facility] [address] [place] [address] Samanta Adams DO [address] [place] [address] Referral Social History Tobacco Use Types Packs/Day [...] 1 week. Pt. Reports [place] [facility] [place] and L sided cyst was found, pt. Was recommended to f/up with [facility] but was never called. Per ED note, complex cyst 2.3cm within L ovary. Pt. Reports cyst had not bothered her for a while but now pain has recurred and pt. Would like cystrechecked. Due to insurance, pt. Can not be referred to [facility] as requested but agrees to appointment with YUMIKO Desai tomorrow at 3:45 for evaluation * Telephone Encounter - Jose J Keating - 01/31/2025 3:48 PM EST Tc from pt requesting to a referral to a OBGYN Contact pt at [phone] (bulgarian) documented in this encounter Plan of Treatment Not on file documented as of this encounter Visit Diagnoses Not on filedocumented in this encounter Care Teams Environmental Air Specialist Relationship Specialty Start Date End Date Samanta Adams DO [address] [place] [phone] PCP - General Family Medicine 08/04/24 documented as of this encounter
--- OUTSIDE RECORDS SUMMARY | 2025-02-03 16:25 | XMS_ITS | Clinical Summary ---
Author Organization [employer] Address [address] [facility] 7t [place] [address] Care Team Providers Care Transportation Technician Name Role Phone Samanta Adams DO Primary Care Provider [phone] Allergies No known active allergies Medications albuterol 108 (90 Base) MCG/ACT inhalerIndicatio ns:Asthma, unspecified asthma severity, unspecified whether complicated, unspecified whether persistent Inhale 2 puffs every 6 (six) hours if needed for wheezing. 18 g 5 07/31/19 26 Active fluticasone furoate (Arnuity Ellipta) 100 MCG/ACT inhalerIndicatio ns:Asthma, unspecified asthma severity, unspecified whether complicated, unspecified whether persistent Inhale 1 puff Once per day. Rinse mouth with water after use to reduce aftertaste and incidence of candidiasis. Do not swallow. 1 each 5 07/31/19 Active montelukast (Singulair) 10 MG tabletIndication s:Asthma, [...] 60 tablet 1 5 08/05/19 26 Active doxycycline (Vibramycin) 100 MG capsule Take 1 capsule (100 mg) by mouth 2 times daily for 7 days. Take with at least 8 ounces (large glass) of water, do not lie down for 30 minutes after 14 capsule 02/11/20 Active metroNIDAZOLE (Flagyl) 500 MG tablet Take 1 tablet (500 mg) by mouth 2 times daily for 7 days. 14 tablet 5 02/11/20 Active Active Problems Problem Noted Date Diagnosed Date Asthma 07/30/2024 Seasonal allergies 07/30/2024 IUD (intrauterine device) in place 07/30/2024 Encounters Date Type Department Care Team Description 02/03/2025 Telephone [facility] [address] [place] [phone] Samanta Adams DO 02/02/2025 3:45 PM EST Office Visit [facility] [address] [place] [phone] Giselle Grewal CNM Pelvic pain (Primary Dx); Encntr screen for infections w sexl mode of transmiss; Left ovarian cyst; Encounter for routine checking of intrauterine contraceptive device (IUD) 02/02/2025 Travel 02/01/2025 Telephone [facility] [address] [place] [phone] Marisol Alberto [place] 01/31/2025 Telephone [facility] [address] [place] [phone] Samanta Adams DO Referral from Last [...] COVID-19 Vaccine ( - 2023-2 5 season) 2024 Influenza Vaccine (#1) 2024 Alcohol/Substance Use Screening 02/02/2026 02/02/2025 Chlamydia and Gonorrhea Screening 02/02/2026 02/02/2025, 08/04/2024 Depression Screening 02/02/2026 02/02/2025, 02/02/2025 Disability Screening [...] Routine 02/02/2025 3:49 PM EST Pelvic pain from Last 3 Months Results * (ABNORMAL) Bacterial Vaginosis, Yeast and Trich (02/02/2025 4:15 PM EST) TRICHOMONAS VAGINALIS DETECTION BY PCR DETECTED(A) Not Detect [facility] BACTERIAL VAGINOSIS DETECTION BY PCR POSITIVE(A) Negative [facility] Comment:The BV organism targ ets [...] DETECTION BY PCR NOT DETECTED Not Detect [facility] Jessica glab krusei PCR NOT DETECTED Not Detect [facility] Swab Vaginal structure / Unknown 02/02/2025 4:15 PM EST 02/02/2025 6:25 PM EST us Giselle Grewal [facility] MICROBIOLOGY - GENERA L ORDERABLES Final Result [facility] [address] [place] [phone] * (ABNORMAL) Chlamydia/N. Gonorrhoeae RNA, TMA, Vagina (02/02/2025 4:15 PM EST) CT PCR DETECTED(A) Not Detect. [facility] Comment:Detected results may be [...] the ordering clinician orclinical facility to the [facility] required by state law. NG PCR NOT DETECTED Not Detect. [facility] Comment:A not detected test [...] MICROBIOLOGY - GENERA L ORDERABLES Final Result [facility] [address] [place] [phone] * POCT , urine manually resulted (02/02/2025 3:49 PM EST) Preg Test, Ur Negative Negative, Indeterminate, None Detected, Invalid, Specimen unsatisfactory for evaluation, Weakly Positive, 2+ QC Media Lot # [id number] Lot# Expiration Date [id number] Urine 02/02/2025 3:49 PM EST Giselle OLIVA POINT OF CARE TEST ENTER/ EDIT ORDERABLES Final Result from Last 3 Months Insurance [employer] HSN FULL Care Teams Transportation Technician Relationship Specialty Start Date End Date Samanta Adams DO [address] [place] [phone] PCP - General Family Medicine 08/04/24
--- OUTSIDE RECORDS SUMMARY | 2025-02-03 16:25 | XMS_ITS | Encounter Summary ---
Author Organization [employer] Address [address] [facility] [address] [place] [address] Care Team Providers Care Welder Helper Name Role Phone Samanta Adams DO Primary Care Provider + [phone] Encounter Details Date Type Department Care Team (Late st Contact Info) Description 02/01/2025 Telephone [facility] [address] [place], [place] [phone] Marisol Alberto [place] Social History Tobacco Use [...] on filedocumented in this encounter Care Teams Welder Helper Relationship Specialty Start Date End Date Samanta Adams DO [address] [place] [phone] PCP - General Family Medicine 08/04/24 documented as of this encounter
== END 2025-02-03 15:19 | disposition home or self-care (01) ==
LOC: HO.US 15:18
PROVIDERS: Visit Provider Advanced Practice Midwife
DX: Z30.431 Encounter for routine checking of intrauterine contraceptive device (principal); R10.20 Pelvic and perineal pain unspecified side; N83.202 Unspecified ovarian cyst, left side
CPT/HCPCS: 76830; 76856

== ENCOUNTER → 2025-02-03 15:21 | Outpatient (BNV) | payer SELFPAY | PROVIDERS: Visit Provider Radiology Diagnostic Ultrasound | DX: N83.202 Unspecified ovarian cyst, left side (principal) | CPT/HCPCS: 76830; 76856 ==